=== PATIENT | male | born 1960 | race Caucasian/White ===

== ENCOUNTER 2016-04-20 11:12 | Inpatient (IN) | payer OTHER ==
[2016-04-20 16:39] VITALS: BMI 23.9
--- NOTE | 2016-04-20 16:43 | HP ---
CIWA Score - CIWA Score Nausea/Vomitin-Int. Nausea w/Dry Heave Muscle Tremors: 3 Anxiety: 4-Mod. Anxious/Guarded Agitation: 2 Paroxysmal Sweats: 2 Orientation: 1-Uncertain about Date Tacttile Disturbances: 0-None Auditory Disturbances: 2-Mild Harshness/Frighten Visual Disturbances: 0-None Headache: 2-Mild CIWA-Ar Total Score: 20 Admission ROS S - HPI Chief Complaint: "My and it has been downhill ever since." Pt. is here to detox from Alcohol. Allergies/Adverse Reactions: Allergies Allergy/AdvReac Type Severity Reaction Status Date / Time Penicillins Allergy Hives and Verified 04/20/16 15:18 rash History of Present Illness: Pt. is a 55 YO male here to detox from Alcohol. Pt. has had several previous Detox admissions at [facility] in the past. Exam Limitations: No Limitations - Ebola screening Have you traveled outside of the country in the last 21 days: No Have you had contact with anyone from an Ebola affected area: No Have you been sick,other than usual withdrawal symptoms: No Do you have a fever: No - Review of Systems Constitutional: Diaphoresis, Loss of Appetite, Malaise, Night Sweats, Changes in sleep, Unintentional Wgt. Loss (Lost approx. 10 lbs over last 3 weeks.) EENT: reports: Other (Red Eyes - pt. reports that his eyes feel dry. Pt. denies any signs of infection (itching, tearing, unusual discharge).) Respiratory: reports: Shortness of Breath Cardiac: reports: No Symptoms Reported GI: reports: Nausea, Poor Appetite, Abdominal cramping : reports: No Symptoms Reported Musculoskeletal: reports: No Symptoms Reported Integumentary: reports: No Symptoms Reported Neuro: reports: Tremors Endocrine: reports: No Symptoms Reported Hematology: reports: No Symptoms Reported Psychiatric: reports: Judgement Intact, Mood/Affect Appropiate, Orientated x3, Agitated, Anxious, Depressed (On meds. Ran out of Lexapro approx. 1 week ago - has not taken it since then.) Other Systems: Reviewed and Negative Patient History - Patient Medical History Hx Anemia: No Hx Asthma: No Hx Chronic Obstructive Pulmonary Disease (COPD): Yes (On meds.) Hx Cancer: No Hx Cardiac Disorders: No Hx Congestive Heart Failure: No Hx Hypertension: No Hx Hypercholesterolemia: Yes (NO MEDS) Hx Pacemaker: No HX Cerebrovascular Accident: No Hx Seizures: No Hx Dementia: No Hx Diabetes: No Hx Gastrointestinal Disorders: No Hx Liver Disease: No Hx Genitourinary Disorders: No Hx Sexually Transmitted Disorders: No Hx Renal Disease (ESRD): Yes (Reports that he has Stage II Renal Disease; No treatment.) Hx Thyroid Disease: No Hx Human Immunodeficiency Virus (HIV): No (NEGATIVE HX, 04/2015) Hx Hepatitis C: No (Last tested approx. 1 year ago: NEGATIVE.) Hx Depression: Yes (Stopped Lexapro approx. 1 week ago, ran out of med.) Hx Suicide Attempt: No (PATIENT DENIES CURRENT SI / HI.) Hx Bipolar Disorder: No Hx Schizophrenia: No - Patient Surgical History Past Surgical History: Yes Hx Neurologic Surgery: No Hx Cataract Extraction: No Hx Cardiac Surgery: No Hx Lung Surgery: No Hx Breast Surgery: No Hx Breast Biopsy: No Hx Abdominal Surgery: No Hx Appendectomy: No Hx Cholecystectomy: No Hx Genitourinary Surgery: No Hx Section: No Hx Orthopedic Surgery: Yes (1988: LEFT KNEE RECONSTRUCTIVE SURGERY.) Anesthesia Reaction: No - PPD History Previous Implant?: Yes Documented Results: Negative w/proof Implanted On Prior R Admission?: Yes Date: 01/14/16 Results: 0 mm PPD to be Administered?: No - Reproductive History Patient is a Female of Child Bearing Age (11 -55 yrs old): No (PATIENT IS MALE.) - Smoking Cessation Smoking history: Current every day smoker Have you smoked in the past 12 months: Yes Aproximately how many cigarettes per day: 7 Cigars Per Day: 0 Hx Chewing Tobacco Use: No Initiated information on smoking cessation: Yes 'Breaking Loose' booklet given: 04/20/16 (GIVEN ON UNIT.) - Substance & Tx. History Hx Alcohol Use: Yes Hx Substance Use: Yes Substance Use Type: Alcohol Hx Substance Use Treatment: Yes (Previous Detox Admissions.) - Substances Abused Alcohol-beer/wine Route: Oral Frequency: Daily Amount used: 2 (40 oz.); 1 pt. Wine / Champagne Age of first use: 14 Date of Last Use: 04/20/16 Family Disease History - Family Disease History Family Disease History: Other: Father (ALCOHOLIC ), Mother (MVA ) Admission Physical Exam BHS - Vital Signs Vital Signs: Vital Signs - 24 hr 04/20/16 15:28 Temperature 96.8 F L Pulse Rate 88 Respiratory 18 Rate Blood Pressure 93/57 - Physical General Appearance: Yes: Nourished, Appropriately Dressed, Moderate Distress, Tremorous, Irritable, Anxious HEENTM: Yes: Hearing grossly Normal, Normocephalic, Normal Voice, NABIL, Pharynx Normal, Other (Redness notes in Bilateral Eyes - pt. reports that eyes feel dry. Pt. denies any signs of infection (itching, tearing, unusual discharge).) Respiratory: Yes: Chest Non-Tender, Lungs Clear, No Respiratory Distress Neck: Yes: No masses,lesions,Nodules, Supple, Trachea in good position Breast: Yes: Breast Exam Deferred Cardiology: Yes: Regular Rhythm, Regular Rate, S1, S2 Abdominal: Yes: Normal Bowel Sounds, Non Tender, Flat, Soft Genitourinary: Yes: Within Normal Limits Back: Yes: Normal Inspection Musculoskeletal: Yes: Gait Steady, Joint Stiffness Extremities: Yes: Non-Tender, Tremors Neurological: Yes: Fully Oriented, Alert, Normal Mood/Affect, Normal Response Integumentary: Yes: Normal Color, Warm Lymphatic: Yes: Within Normal Limits - Diagnostic (1) Alcohol dependence with uncomplicated withdrawal Current Visit: Yes Status: Acute (2) COPD (chronic obstructive pulmonary disease) Current Visit: Yes Status: Chronic Qualifiers: COPD type: emphysema Emphysema type: other Qualified Code(s): J43.8 - Other emphysema (3) Hypercholesteremia Current Visit: Yes Status: Chronic Comment: NO MEDS. (4) Nicotine dependence Current Visit: Yes Status: Chronic Qualifiers: Nicotine product type: cigarettes Substance use status: uncomplicated Qualified Code(s): F17.210 - Nicotine dependence, cigarettes, uncomplicated (5) Insomnia Current Visit: Yes Status: Acute Qualifiers: Insomnia type: alcohol-induced Qualified Code(s): F10.982 - Alcohol use, unspecified with alcohol-induced sleep disorder Cleared for Admission [facility] - Detox or Rehab [facility] Level of Care: Medically Managed (PATIENT ADVISED TO FOLLOW-UP WITH [facility] / REHAB MEDICAL PROVIDER AFTER DISCHARGE FROM DETOX FOR GENERAL MEDICAL ASSESSMENT.) Detox Regimen/Protocol: Librium S Breath Alcohol Content Breath Alcohol Content: 0.178 Urine Drug Screen - Results Drug Screen Negative: Yes
[2016-04-20] MEDS ORDERED: IBUPROFEN 400 MG TABLET (FP) PO PRN (17:36)
[2016-04-20] MEDS ORDERED: MAG HYDROX/AL HYDROX/SIMETH 30 ML UNIT-DOSE CUP PO PRN (17:36)
[2016-04-20] MEDS ORDERED: guaiFENesin/D-METHORPHAN HB 10 ML UNIT-DOSE CUPS PO PRN (17:36)
[2016-04-20] MEDS ORDERED: MAGNESIUM CITRATE 300 ML BOTTLE PO PRN (17:36)
[2016-04-20] MEDS ORDERED: LOPERAMIDE HCL 2 MG CAPSULE PO PRN (17:36)
[2016-04-20] MEDS ORDERED: P-EPHED 60MG/TRIPROLIDI 2.5MG TABLET PO PRN (17:36)
[2016-04-20] MEDS ORDERED: MAGNESIUM HYDROX 2400MG/30ML ORAL SUSPENSION 30 ML CUP PO PRN (17:36)
[2016-04-20] MEDS ORDERED: chlordiazePOXIDE HCL 25 MG CAPSULE PO PRN (17:36)
[2016-04-20] MEDS ORDERED: MENTHOL/PHENOL 1 EACH UD MM PRN (17:36)
[2016-04-20] MEDS ORDERED: NICOTINE POLACRILEX 2 MG GUM BC PRN (17:36)
[2016-04-20] MEDS ORDERED: ACETAMINOPHEN 325 MG TABLET (FP) PO PRN (17:36)
[2016-04-20] MEDS ORDERED: chlordiazePOXIDE HCL 25 MG CAPSULE PO ONE (18:00)
[2016-04-20] MEDS: chlordiazePOXIDE HCL 25 MG CAPSULE PO SCH (22:09)
[2016-04-20] MEDS: diphenhydrAMINE HCL 50 MG CAPSULE PO PRN (22:09)
[2016-04-20] MEDS: THIAMINE HCL 100 MG TABLET (FP) PO SCH (22:09)
[2016-04-20] MEDS: NICOTINE 14 MG/24 HOURS TOPICAL PATCH TD SCH (22:10)
[2016-04-20] MEDS: BUDESONIDE/FORMETEROL FUMARATE 80/4.5 mcg INHALER IH SCH (22:54)
[2016-04-20 23:34] LABS: URINE APPEARANCE CLEAR; URINE BILIRUBIN NEGATIVE (NEGATIVE); URINE BLOOD NEGATIVE (NEGATIVE); URINE COLOR YELLOW; URINE GLUCOSE (UA) NEGATIVE (NEGATIVE); URINE KETONE NEGATIVE (NEGATIVE); URINE LEUK ESTERASE NEGATIVE (NEGATIVE); URINE NITRITE NEGATIVE (NEGATIVE); URINE PROTEIN NEGATIVE (NEGATIVE); URINE UROBILINOGEN NEGATIVE E.U./dl (0.2-1.0)
[2016-04-21] MEDS: chlordiazePOXIDE HCL 25 MG CAPSULE PO SCH ×4 (05:58→22:20)
[2016-04-21] MEDS ORDERED: ALBUTEROL SO4 0.083% IH SOL 2.5 MG/3 ML VIAL.NEB. NEB PRN (06:07)
[2016-04-21 10:11] LABS: MCH 33.2 pg (25.7-33.7); MEAN CELL VOLUME 100.7 fl (80-96); MEAN PLT VOLUME 8.9 fl (7.5-11.1); PLATELET COUNT 146 K/MM3 (134-434); RDW 15.7 % (11.9-15.9); WHITE BLOOD COUNT 9.1 K/mm3 (4.0-10.0)
[2016-04-21 10:38] LABS: ALBUMIN 3.9 g/dl (3.4-5.0); ALK PHOS 124 U/L (45-117); ANION GAP 11 (8-16); BILIRUBIN,TOTAL 0.4 mg/dL (0.2-1.0); CALCIUM 8.6 mg/dL (8.5-10.1); CO2 22 mmol/L (21-32); GLUCOSE,RANDOM 126 mg/dL (74-106); SGOT/AST 110 U/L (15-37); SGPT/ALT 97 U/L (12-78); TOT PROT 7.4 g/dl (6.4-8.2)
[2016-04-21] MEDS: NICOTINE 14 MG/24 HOURS TOPICAL PATCH TD SCH (10:54)
[2016-04-21] MEDS: PRENATAL VITAMINS W/ FOLIC ACID TABLET (FP) PO SCH (10:54)
[2016-04-21] MEDS: BUDESONIDE/FORMETEROL FUMARATE 80/4.5 mcg INHALER IH SCH ×2 (10:54→22:19)
[2016-04-21] MEDS: TETRAHYDROZOLINE HCL 1 DROP DROPS OU PRN ×2 (10:55→22:19)
--- NOTE | 2016-04-21 12:39 | PN ---
S CIWA - CIWA Score Nausea/Vomitin Muscle Tremors: 3 Anxiety: 3 Agitation: 3 Paroxysmal Sweats: 3 Orientation: 0-Oriented Tacttile Disturbances: 2-Mild Itch/Numbness/Burn Auditory Disturbances: 0-None Visual Disturbances: 0-None Headache: 2-Mild CIWA-Ar Total Score: 18 S Progress Note (SOAP) Subjective: Irritability, shakes, sweats, nausea and generalized pain Objective: 04/21/16 12:38 NAD Vital Signs - 8 hr 04/21/16 04/21/16 06:00 11:28 Temperature 98.1 F 97.3 F L Pulse Rate 83 96 H Respiratory 18 18 Rate Blood Pressure 145/76 131/89 Laboratory Last Values WBC 9.1 K/mm3 (4.0-10.0) 04/21/16 06:20 RBC 4.33 M/mm3 (4.00-5.60) 04/21/16 06:20 Hgb 14.4 GM/dL (11.7-16.9) 04/21/16 06:20 Hct 43.6 % (35.4-49) 04/21/16 06:20 MCV 100.7 fl (80-96) H 04/21/16 06:20 MCHC 33.0 g/dl (32.0-35.9) 04/21/16 06:20 RDW 15.7 % (11.9-15.9) 04/21/16 06:20 Plt Count 146 K/MM3 (134-434) D 04/21/16 06:20 MPV 8.9 fl (7.5-11.1) D 04/21/16 06:20 Sodium 134 mmol/L (136-145) L 04/21/16 06:20 Potassium 4.2 mmol/L (3.5-5.1) 04/21/16 06:20 Chloride 101 mmol/L (98-107) 04/21/16 06:20 Carbon Dioxide 22 mmol/L (21-32) 04/21/16 06:20 Anion Gap 11 (8-16) 04/21/16 06:20 BUN 6 mg/dL (7-18) L 04/21/16 06:20 Creatinine 1.0 mg/dL (0.7-1.3) D 04/21/16 06:20 Creat Clearance w eGFR > 60 (>60) 04/21/16 06:20 Random Glucose 126 mg/dL (74-106) H D 04/21/16 06:20 Calcium 8.6 mg/dL (8.5-10.1) 04/21/16 06:20 Total Bilirubin 0.4 mg/dL (0.2-1.0) D 04/21/16 06:20 AST 110 U/L (15-37) H D 04/21/16 06:20 ALT 97 U/L (12-78) H D 04/21/16 06:20 Alkaline Phosphatase 124 U/L (45-117) H D 04/21/16 06:20 Total Protein 7.4 g/dl (6.4-8.2) 04/21/16 06:20 Albumin 3.9 g/dl (3.4-5.0) 04/21/16 06:20 Urine Color Yellow 04/20/16 20:00 Urine Appearance Clear 04/20/16 20:00 Urine pH 5.0 (5.0-8.0) 04/20/16 20:00 Ur Specific [place] 1.011 (1.001-1.035) 04/20/16 20:00 Urine Protein Negative (NEGATIVE) 04/20/16 20:00 Urine Glucose (UA) Negative (NEGATIVE) 04/20/16 20:00 Urine Ketones Negative (NEGATIVE) 04/20/16 20:00 Urine Blood Negative (NEGATIVE) 04/20/16 20:00 Urine Nitrite Negative (NEGATIVE) 04/20/16 20:00 Urine Bilirubin Negative (NEGATIVE) 04/20/16 20:00 Urine Urobilinogen Negative E.U./dl (0.2-1.0) 04/20/16 20:00 Ur Leukocyte Esterase Negative (NEGATIVE) 04/20/16 20:00 Labs noted Assessment: 04/21/16 12:38 withdrawal sx Plan: continue detox
--- NOTE | 2016-04-21 14:11 | CONSULT ---
[facility] Psychiatric Consult - Data Date of interview: 04/21/16 Admission source: [facility] Identifying data: Readmission to [facility] for this 55 y/o male seeking detox treatment on for alcohol dependence.Patient is ,a father of one,unemployed,domiciled and supported on survivor's benefits. Substance Abuse History: - Smoking Cessation. Smoking history: Current every day smoker. Have you smoked in the past 12 months: Yes. Aproximately how many cigarettes per day: 7. Cigars Per Day: 0. Hx Chewing Tobacco Use: No. Initiated information on smoking cessation: Yes. 'Breaking Loose' booklet given : 04/20/16 (GIVEN ON UNIT.). - Substance & Tx. History. Hx Alcohol Use: Yes. Hx Substance Use: Yes. Substance Use Type: Alcohol. Hx Substance Use Treatment : Yes (Previous Detox Admissions.). - Substances Abused. Alcohol-beer/ wine. Route: Oral. Frequency: Daily. Amount used: 2 (40 oz.); 1 pt. Wine / Champagne. Age of first use: 14. Date of Last Use: 04/20/16. Confirmed by the patient in this interview. Medical History: COPD,hypertension (alcohol-related),Stage-II renal disease, hypercholesterolemia and left knee replacement (1997). Psychiatric History: No history of psychiatric hospitalizations.Mr Metcalf reports that he gets scripts for remeron 15 mg/hs + lexapro 20 mg/daily from his primary care physician.Diagnosed with MDD/Anxiety Disorder.No history of suicide attempts. Physical/Sexual Abuse/Trauma History: No history of sexual abuse.Traumatized by of (cancer). Additional Comment: Drug Screen is negative.Noted. Mental Status Exam - Mental Status Exam Alert and Oriented to: Time, Place, Person Cognitive Function: Good Patient Appearance: Well Groomed Mood: Nervous, Withdrawn, Hopeful Affect: Mood Congruent, Constricted Patient Behavior: Sedated (mild), Fatigued Speech Pattern: Clear Voice Loudness: Normal Thought Process: Goal Oriented Thought Disorder: Not Present Hallucinations: Denies Suicidal Ideation: Denies Homicidal Ideation: Denies Insight/Judgement: Fair Sleep: Fair Appetite: Good Muscle strength/Tone: Normal Gait/Station: Normal Psychiatric Findings - Problem List ([place] 1, 2,3) (1) Alcohol dependence with uncomplicated withdrawal Current Visit: Yes Status: Acute (2) Nicotine dependence Current Visit: Yes Status: Acute Qualifiers: Nicotine product type: cigarettes Substance use status: uncomplicated Qualified Code(s): F17.210 - Nicotine dependence, cigarettes, uncomplicated (3) MDD (major depressive disorder) Current Visit: Yes Status: Chronic (4) Anxiety disorder Current Visit: Yes Status: Chronic (5) Insomnia Current Visit: Yes Status: Chronic Qualifiers: Insomnia type: alcohol-induced Qualified Code(s): F10.982 - Alcohol use, unspecified with alcohol-induced sleep disorder (6) COPD (chronic obstructive pulmonary disease) Current Visit: Yes Status: Chronic Qualifiers: COPD type: emphysema Emphysema type: other Qualified Code(s): J43.8 - Other emphysema (7) Chronic obstructive bronchitis Current Visit: No Status: Chronic (8) Hypercholesteremia Current Visit: Yes Status: Chronic Comment: NO MEDS. - Initial Treatment Plan Initial Treatment Plan: Psychoeducation.Detoxification.Medications : lexapro 20 mg po daily + remeron 15 mg po hs.Side effects/benefits discussed with the patient.Made aware of the risk of occurrence of suicidal ideation,sexual dysfunction (lexapro),sedation/falls (remeron).Patient admits to history of good tolerability to these two drugs.He agrees with this careplan.Observation.
[2016-04-21] MEDS: ESCITALOPRAM OXALATE 20 MG TABLET (FP) PO SCH (14:57)
--- NOTE | 2016-04-21 21:06 | EKG ---
Test Reason : Blood Pressure : / mmHG Vent. Rate : 079 BPM Atrial Rate : 079 BPM P-R Int : 186 ms QRS Dur : 086 ms QT Int : 368 ms P-R-T Axes : 051 067 044 degrees QTc Int : 421 ms NORMAL SINUS RHYTHM NORMAL ECG NO PREVIOUS ECGS AVAILABLE Confirmed by BISMARK MEDRANO MD ([id number]) on 04/21/2016 9:05:31 PM Referred By: Confirmed By:BISMARK MEDRANO MD
[2016-04-21] MEDS: MIRTAZAPINE 15 MG TABLET (FP) PO SCH (22:19)
[2016-04-21] MEDS: diphenhydrAMINE HCL 50 MG CAPSULE PO PRN (22:19)
[2016-04-21] MEDS: THIAMINE HCL 100 MG TABLET (FP) PO SCH (22:19)
[2016-04-22] MEDS: chlordiazePOXIDE HCL 25 MG CAPSULE PO SCH ×3 (05:26→17:14)
[2016-04-22] MEDS: ALBUTEROL SO4 6.7 GM HFA INHALER IH PRN (05:29)
[2016-04-22] MEDS: ESCITALOPRAM OXALATE 20 MG TABLET (FP) PO SCH (10:19)
[2016-04-22] MEDS: NICOTINE 14 MG/24 HOURS TOPICAL PATCH TD SCH (10:19)
[2016-04-22] MEDS: PRENATAL VITAMINS W/ FOLIC ACID TABLET (FP) PO SCH (10:19)
[2016-04-22] MEDS: BUDESONIDE/FORMETEROL FUMARATE 80/4.5 mcg INHALER IH SCH ×2 (10:19→22:19)
[2016-04-22] MEDS: TETRAHYDROZOLINE HCL 1 DROP DROPS OU PRN ×3 (10:20→22:19)
--- NOTE | 2016-04-22 12:06 | PN ---
S CIWA - CIWA Score Nausea/Vomitin Muscle Tremors: 3 Anxiety: 4-Mod. Anxious/Guarded Agitation: 4-Moderately Restless Paroxysmal Sweats: No Perspiration Orientation: 0-Oriented Tacttile Disturbances: 1-Very Mild Itch/Numbness Auditory Disturbances: 0-None Visual Disturbances: 0-None Headache: 3-Moderate CIWA-Ar Total Score: 18 BHS Progress Note (SOAP) Subjective: Restlessness, Irritable, Interrupted Sleep, Chills, Generalized Body Aches Objective: Vital Signs Temperature 98.1 F 04/22/16 10:00 Pulse Rate 85 04/22/16 10:00 Respiratory Rate 18 04/22/16 10:00 Blood Pressure 131/83 04/22/16 10:00 O2 Sat by Pulse Oximetry (%) Laboratory Last Values WBC 9.1 K/mm3 (4.0-10.0) 04/21/16 06:20 RBC 4.33 M/mm3 (4.00-5.60) 04/21/16 06:20 Hgb 14.4 GM/dL (11.7-16.9) 04/21/16 06:20 Hct 43.6 % (35.4-49) 04/21/16 06:20 MCV 100.7 fl (80-96) H 04/21/16 06:20 MCHC 33.0 g/dl (32.0-35.9) 04/21/16 06:20 RDW 15.7 % (11.9-15.9) 04/21/16 06:20 Plt Count 146 K/MM3 (134-434) D 04/21/16 06:20 MPV 8.9 fl (7.5-11.1) D 04/21/16 06:20 Sodium 134 mmol/L (136-145) L 04/21/16 06:20 Potassium 4.2 mmol/L (3.5-5.1) 04/21/16 06:20 Chloride 101 mmol/L (98-107) 04/21/16 06:20 Carbon Dioxide 22 mmol/L (21-32) 04/21/16 06:20 Anion Gap 11 (8-16) 04/21/16 06:20 BUN 6 mg/dL (7-18) L 04/21/16 06:20 Creatinine 1.0 mg/dL (0.7-1.3) D 04/21/16 06:20 Creat Clearance w eGFR > 60 (>60) 04/21/16 06:20 Random Glucose 126 mg/dL (74-106) H D 04/21/16 06:20 Calcium 8.6 mg/dL (8.5-10.1) 04/21/16 06:20 Total Bilirubin 0.4 mg/dL (0.2-1.0) D 04/21/16 06:20 AST 110 U/L (15-37) H D 04/21/16 06:20 ALT 97 U/L (12-78) H D 04/21/16 06:20 Alkaline Phosphatase 124 U/L (45-117) H D 04/21/16 06:20 Total Protein 7.4 g/dl (6.4-8.2) 04/21/16 06:20 Albumin 3.9 g/dl (3.4-5.0) 04/21/16 06:20 Urine Color Yellow 04/20/16 20:00 Urine Appearance Clear 04/20/16 20:00 Urine pH 5.0 (5.0-8.0) 04/20/16 20:00 Ur Specific [place] 1.011 (1.001-1.035) 04/20/16 20:00 Urine Protein Negative (NEGATIVE) 04/20/16 20:00 Urine Glucose (UA) Negative (NEGATIVE) 04/20/16 20:00 Urine Ketones Negative (NEGATIVE) 04/20/16 20:00 Urine Blood Negative (NEGATIVE) 04/20/16 20:00 Urine Nitrite Negative (NEGATIVE) 04/20/16 20:00 Urine Bilirubin Negative (NEGATIVE) 04/20/16 20:00 Urine Urobilinogen Negative E.U./dl (0.2-1.0) 04/20/16 20:00 Ur Leukocyte Esterase Negative (NEGATIVE) 04/20/16 20:00 RPR Titer Nonreactive (NONREACTIVE) 04/21/16 06:20 Labs Noted Assessment: Withdrawal Symptoms Plan: Continue Detox
[2016-04-22] MEDS: THIAMINE HCL 100 MG TABLET (FP) PO SCH (22:19)
[2016-04-22] MEDS: MIRTAZAPINE 15 MG TABLET (FP) PO SCH (22:19)
[2016-04-22] MEDS: chlordiazePOXIDE 5 MG CAPSULE PO SCH (22:19)
[2016-04-22] MEDS: diphenhydrAMINE HCL 50 MG CAPSULE PO PRN (22:19)
[2016-04-23] MEDS: diphenhydrAMINE HCL 50 MG CAPSULE PO PRN ×2 (00:35→22:04)
[2016-04-23] MEDS: hydrOXYzine PAMOATE 50 MG CAPSULE (FP) PO PRN (02:42)
[2016-04-23] MEDS: chlordiazePOXIDE 5 MG CAPSULE PO SCH ×3 (06:10→17:25)
[2016-04-23] MEDS: BUDESONIDE/FORMETEROL FUMARATE 80/4.5 mcg INHALER IH SCH ×2 (10:16→22:04)
[2016-04-23] MEDS: ESCITALOPRAM OXALATE 20 MG TABLET (FP) PO SCH (10:17)
[2016-04-23] MEDS: PRENATAL VITAMINS W/ FOLIC ACID TABLET (FP) PO SCH (10:17)
[2016-04-23] MEDS: NICOTINE 14 MG/24 HOURS TOPICAL PATCH TD SCH (10:19)
--- NOTE | 2016-04-23 10:46 | PN ---
BHS Progress Note (SOAP) Subjective: sweats agitation body aches Objective: 04/23/16 10:44 Vital Signs Temperature 97.9 F 04/23/16 10:22 Pulse Rate 76 04/23/16 10:22 Respiratory Rate 18 04/23/16 10:22 Blood Pressure 147/71 04/23/16 10:22 O2 Sat by Pulse Oximetry (%) Laboratory Tests 04/20/16 04/21/16 04/21/16 20:00 06:20 06:20 WBC 9.1 RBC 4.33 Hgb 14.4 Hct 43.6 MCV 100.7 H MCHC 33.0 RDW 15.7 Plt Count 146 D MPV 8.9 D Sodium 134 L Potassium 4.2 Chloride 101 Carbon Dioxide 22 Anion Gap 11 BUN 6 L Creatinine 1.0 D Creat Clearance w eGFR > 60 Random Glucose 126 H D Calcium 8.6 Total Bilirubin 0.4 D AST 110 H D ALT 97 H D Alkaline Phosphatase 124 H D Total Protein 7.4 Albumin 3.9 Urine Color Yellow Urine Appearance Clear Urine pH 5.0 Ur Specific [place] 1.011 Urine Protein Negative Urine Glucose (UA) Negative Urine Ketones Negative Urine Blood Negative Urine Nitrite Negative Urine Bilirubin Negative Urine Urobilinogen Negative Ur Leukocyte Esterase Negative RPR Titer 04/21/16 06:20 WBC RBC Hgb Hct MCV MCHC RDW Plt Count MPV Sodium Potassium Chloride Carbon Dioxide Anion Gap BUN Creatinine Creat Clearance w eGFR Random Glucose Calcium Total Bilirubin AST ALT Alkaline Phosphatase Total Protein Albumin Urine Color Urine Appearance Urine pH Ur Specific [place] Urine Protein Urine Glucose (UA) Urine Ketones Urine Blood Urine Nitrite Urine Bilirubin Urine Urobilinogen Ur Leukocyte Esterase RPR Titer Nonreactive elevated liver enzymes; repeat labs d/c tylenol increase fluids awake/alert ambulating no acute distress Assessment: 04/23/16 10:45 withdrawal sx Plan: continue detox increase fluids f/u pending labs d/c in am
[2016-04-23 14:22] LABS: SGOT/AST 34 U/L (15-37); SGPT/ALT 48 U/L (12-78)
[2016-04-23 17:01] VITALS: TEMP 98.1
[2016-04-23] MEDS: ALBUTEROL SO4 6.7 GM HFA INHALER IH PRN (22:04)
[2016-04-23] MEDS: TETRAHYDROZOLINE HCL 1 DROP DROPS OU PRN (22:04)
[2016-04-23] MEDS: MIRTAZAPINE 15 MG TABLET (FP) PO SCH (22:05)
[2016-04-23] MEDS: chlordiazePOXIDE HCL 10 MG CAPSULE PO SCH (22:05)
[2016-04-23] MEDS: THIAMINE HCL 100 MG TABLET (FP) PO SCH (22:05)
[2016-04-24] MEDS: hydrOXYzine PAMOATE 50 MG CAPSULE (FP) PO PRN (02:31)
[2016-04-24] MEDS: chlordiazePOXIDE HCL 10 MG CAPSULE PO SCH (05:26)
[2016-04-24 06:32] VITALS: BP 114/75; PULSE 66
--- NOTE | 2016-04-24 08:44 | DS ---
[facility] Detox Discharge Summary Admission Date: 04/20/16 Discharge Date: 04/24/16 - History Present History: Alcohol Dependence, Cannabis Dependence - Physical Exam Results Vital Signs: Vital Signs Temperature 98.1 F 04/24/16 06:32 Pulse Rate 66 04/24/16 06:32 Respiratory Rate 16 04/24/16 06:32 Blood Pressure 114/75 04/24/16 06:32 O2 Sat by Pulse Oximetry (%) - Treatment Hospital Course: Detox Protocol Followed, Detoxed Safely, Responded well, Discharged Condition Good - Medication Discharge Medications: Ambulatory Orders Escitalopram Oxalate [Lexapro -] 40 mg PO DAILY 08/19/15 Albuterol Sulfate Inhaler - [Ventolin HFA Inhaler -] 2 inh IH Q4H PRN 04/20/16 Budesonide/Formeterol Fumarate [SYMBICORT 80/4.5mcg -] 1 inh PO BID 04/20/16 Mirtazapine [Remeron -] 15 mg PO HS 04/20/16 Escitalopram Oxalate [Lexapro -] 20 mg PO DAILY #30 tablet 04/21/16 Mirtazapine [Remeron -] 15 mg PO DAILY #30 tablet 04/21/16 - Diagnosis (1) Alcohol dependence with uncomplicated withdrawal Current Visit: Yes Status: Chronic (2) Nicotine dependence Current Visit: Yes Status: Chronic Qualifiers: Nicotine product type: cigarettes Substance use status: uncomplicated Qualified Code(s): F17.210 - Nicotine dependence, cigarettes, uncomplicated (3) Anxiety disorder Current Visit: Yes Status: Chronic Qualifiers: Anxiety disorder type: unspecified anxiety disorder Qualified Code(s ): F41.9 - Anxiety disorder, unspecified (4) COPD (chronic obstructive pulmonary disease) Current Visit: Yes Status: Chronic Qualifiers: COPD type: emphysema Emphysema type: other Qualified Code(s): J43.8 - Other emphysema (5) Hypercholesteremia Current Visit: Yes Status: Chronic (6) Cannabis dependence Current Visit: Yes Status: Chronic - AMA Did Patient Leave Against Medical Advice: No
== END 2016-04-24 09:28 | disposition home or self-care (01) | DRG 775 ==
LOC: YASAS 11:12 → Y6N 15:45
PROVIDERS: ADMIT Internal Medicine; ATTEND Internal Medicine
PROC: HZ2ZZZZ Detoxification Services for Substance Abuse Treatment (ICD-10-PCS; principal; 2016-04-20)
DX: F10.230 Alcohol dependence with withdrawal, uncomplicated (principal); F10.282 Alcohol dependence with alcohol-induced sleep disorder; F12.20 Cannabis dependence, uncomplicated; F17.210 Nicotine dependence, cigarettes, uncomplicated; F41.9 Anxiety disorder, unspecified; F33.9 Major depressive disorder, recurrent, unspecified; J43.8 Other emphysema; E78.00 Pure hypercholesterolemia, unspecified; R94.5 Abnormal results of liver function studies; N18.2 Chronic kidney disease, stage 2 (mild); Z96.652 Presence of left artificial knee joint
CPT/HCPCS: 36415; 80053; 81003; 84450; 84460; 85027; 86593; 93005; 93010

== ENCOUNTER 2016-12-05 09:29 | Inpatient (IN) | payer OTHER ==
[2016-12-05 10:40] VITALS: BMI 24.7
--- NOTE | 2016-12-05 13:47 | HP ---
CIWA Score - CIWA Score Nausea/Vomitin-No Nausea/No Vomiting Muscle Tremors: 4-Moderate,w/Arms Extend Anxiety: 3 Agitation: 4-Moderately Restless Paroxysmal Sweats: 3 Orientation: 0-Oriented Tacttile Disturbances: 0-None Auditory Disturbances: 0-None Visual Disturbances: 0-None Headache: 1-Very Mild CIWA-Ar Total Score: 15 Admission ROS BHS - HPI Chief Complaint: I am here to detox off this alcohol. Allergies/Adverse Reactions: Allergies Allergy/AdvReac Type Severity Reaction Status Date / Time Penicillins Allergy Hives and Verified 12/05/16 11:25 rash History of Present Illness: pt is a 56yr old male with a history of alcohol dependence seeking detox for treatment. Exam Limitations: No Limitations - Ebola screening Have you traveled outside of the country in the last 21 days: No Have you had contact with anyone from an Ebola affected area: No Have you been sick,other than usual withdrawal symptoms: No Do you have a fever: No - Review of Systems Constitutional: Chills, Diaphoresis, Night Sweats, Changes in sleep EENT: reports: No Symptoms Reported Respiratory: reports: No Symptoms reported Cardiac: reports: No Symptoms Reported GI: reports: Poor Appetite, Poor Fluid Intake : reports: No Symptoms Reported Musculoskeletal: reports: No Symptoms Reported Integumentary: reports: Flushing, Sweating Neuro: reports: Tingling, Tremors Endocrine: reports: Excessive Sweating, Flushing, Intolerance to Cold, Intolerance to Heat Hematology: reports: No Symptoms Reported Psychiatric: reports: No Sypmtoms Reported, Judgement Intact, Mood/Affect Appropiate, Orientated x3, Agitated, Anxious Other Systems: Reviewed and Negative Patient History - Patient Medical History Hx Anemia: No Hx Asthma: No Hx Chronic Obstructive Pulmonary Disease (COPD): Yes Hx Cancer: No Hx Cardiac Disorders: No Hx Congestive Heart Failure: No Hx Hypertension: No Hx Hypercholesterolemia: Yes (NO MEDS) Hx Pacemaker: No HX Cerebrovascular Accident: No Hx Seizures: No Hx Dementia: No Hx Diabetes: No Hx Gastrointestinal Disorders: No Hx Liver Disease: No Hx Genitourinary Disorders: No Hx Sexually Transmitted Disorders: No Hx Renal Disease (ESRD): No Hx Thyroid Disease: No Hx Human Immunodeficiency Virus (HIV): No (NEGATIVE HX, 04/2015) Hx Hepatitis C: No (Last tested approx. 1 year ago: NEGATIVE.) Hx Depression: Yes Hx Suicide Attempt: No Hx Bipolar Disorder: No Hx Schizophrenia: No - Patient Surgical History Past Surgical History: Yes Hx Neurologic Surgery: No Hx Cataract Extraction: No Hx Cardiac Surgery: No Hx Lung Surgery: No Hx Breast Surgery: No Hx Breast Biopsy: No Hx Abdominal Surgery: No Hx Appendectomy: No Hx Cholecystectomy: No Hx Genitourinary Surgery: No Hx Section: No Hx Orthopedic Surgery: Yes (1989: LEFT KNEE RECONSTRUCTIVE SURGERY.) Anesthesia Reaction: No - PPD History Previous Implant?: Yes Documented Results: Positive w/o proof Implanted On Prior R Admission?: Yes Date: 01/14/16 Results: 0 mm PPD to be Administered?: No - Reproductive History Patient is a Female of Child Bearing Age (11 -55 yrs old): No - Smoking Cessation Smoking history: Current every day smoker Have you smoked in the past 12 months: Yes Aproximately how many cigarettes per day: 7 Cigars Per Day: 0 Hx Chewing Tobacco Use: No Initiated information on smoking cessation: Yes 'Breaking Loose' booklet given: 12/05/16 - Substance & Tx. History Hx Alcohol Use: Yes Hx Substance Use: No Substance Use Type: Alcohol Hx Substance Use Treatment: Yes (last detox 03/2016 in [facility]) - Substances Abused Alcohol Route: Oral Frequency: Daily Amount used: 1 gallon of wine Age of first use: 17 Date of Last Use: 12/05/16 Family Disease History - Family Disease History Family Disease History: Other: Father (ALCOHOLIC ), Mother (MVA ), Brother (ONLY CHILD) Admission Physical Exam S - Vital Signs Vital Signs: Vital Signs - 24 hr 12/05/16 10:37 Temperature 97 F L Pulse Rate 84 Respiratory 20 Rate Blood Pressure 118/82 - Physical General Appearance: Yes: Appropriately Dressed, Moderate Distress, Tremorous, Irritable, Sweating, Anxious HEENTM: Yes: Normal Voice Respiratory: Yes: Lungs Clear, Normal Breath Sounds, No Respiratory Distress Neck: Yes: Within Normal Limits Breast: Yes: Within Normal Limits Cardiology: Yes: Regular Rhythm, Regular Rate, S1, S2 Abdominal: Yes: Normal Bowel Sounds, Non Tender, Soft Genitourinary: Yes: Within Normal Limits Back: Yes: Normal Inspection Musculoskeletal: Yes: full range of Motion Extremities: Yes: Normal Capillary Refill, Normal Inspection, Non-Tender, Tremors Neurological: Yes: Fully Oriented, Alert, Normal Response Integumentary: Yes: Normal Color, Diaphoresis Lymphatic: Yes: Within Normal Limits - Diagnostic (1) Alcohol dependence with uncomplicated withdrawal Current Visit: Yes Status: Chronic (2) COPD (chronic obstructive pulmonary disease) Current Visit: Yes Status: Chronic Qualifiers: COPD type: chronic bronchitis Chronic bronchitis type: unspecified Qualified Code(s): J42 - Unspecified chronic bronchitis; J42 - Unspecified chronic bronchitis; J42 - Unspecified chronic bronchitis; J42 - Unspecified chronic bronchitis (3) Hypercholesteremia Current Visit: Yes Status: Chronic Comment: NO MEDS. (4) Nicotine dependence Current Visit: No Status: Chronic Qualifiers: Nicotine product type: cigarettes Substance use status: uncomplicated Qualified Code(s): F17.210 - Nicotine dependence, cigarettes, uncomplicated; F17.210 - Nicotine dependence, cigarettes, uncomplicated Cleared for Admission BHS - Detox or Rehab S Level of Care: Medically Managed Detox Regimen/Protocol: Librium S Breath Alcohol Content Breath Alcohol Content: 0.302 Urine Drug Screen - Results Drug Screen Negative: Yes
[2016-12-05] MEDS ORDERED: MAG HYDROX/AL HYDROX/SIMETH 30 ML UNIT-DOSE CUP PO PRN (13:48)
[2016-12-05] MEDS ORDERED: chlordiazePOXIDE HCL 25 MG CAPSULE PO PRN (13:48)
[2016-12-05] MEDS ORDERED: LOPERAMIDE HCL 2 MG CAPSULE PO PRN (13:48)
[2016-12-05] MEDS ORDERED: IBUPROFEN 400 MG TABLET (FP) PO PRN (13:48)
[2016-12-05] MEDS ORDERED: MAGNESIUM CITRATE 300 ML BOTTLE PO PRN (13:48)
[2016-12-05] MEDS ORDERED: MENTHOL/PHENOL 1 EACH UD MM PRN (13:48)
[2016-12-05] MEDS ORDERED: MAGNESIUM HYDROX 2400MG/30ML ORAL SUSPENSION 30 ML CUP PO PRN (13:48)
[2016-12-05] MEDS ORDERED: P-EPHED 60MG/TRIPROLIDI 2.5MG TABLET PO PRN (13:48)
[2016-12-05] MEDS ORDERED: guaiFENesin/D-METHORPHAN HB 10 ML UNIT-DOSE CUPS PO PRN (13:48)
[2016-12-05] MEDS ORDERED: ACETAMINOPHEN 325 MG TABLET (FP) PO PRN (13:48)
[2016-12-05] MEDS ORDERED: ALBUTEROL SO4 18 GM HFA INHALER IH PRN (13:49)
[2016-12-05] MEDS ORDERED: chlordiazePOXIDE HCL 25 MG CAPSULE PO ONE (14:01)
[2016-12-05] MEDS: chlordiazePOXIDE HCL 25 MG CAPSULE PO SCH ×2 (17:38→22:21)
[2016-12-05] MEDS: hydrOXYzine PAMOATE 50 MG CAPSULE (FP) PO PRN (18:59)
[2016-12-05 21:54] LABS: URINE APPEARANCE CLEAR; URINE BILIRUBIN NEGATIVE (NEGATIVE); URINE BLOOD NEGATIVE (NEGATIVE); URINE COLOR COLORLESS; URINE GLUCOSE (UA) NEGATIVE (NEGATIVE); URINE KETONE NEGATIVE (NEGATIVE); URINE NITRITE NEGATIVE (NEGATIVE); URINE PROTEIN NEGATIVE (NEGATIVE); URINE UROBILINOGEN NEGATIVE mg/dL (0.2-1.0)
[2016-12-05] MEDS: THIAMINE HCL 100 MG TABLET (FP) PO SCH (22:21)
[2016-12-05] MEDS: diphenhydrAMINE HCL 50 MG CAPSULE PO PRN (22:22)
[2016-12-05 22:51] LABS: URINE LEUK ESTERASE Negative (NEGATIVE)
[2016-12-06] MEDS: chlordiazePOXIDE HCL 25 MG CAPSULE PO SCH ×4 (05:59→22:17)
[2016-12-06 09:39] LABS: MCH 33.5 pg (25.7-33.7); MCHC 33.3 g/dl (32.0-35.9); MEAN CELL VOLUME 100.5 fl (80-96); MEAN PLT VOLUME 8.8 fl (7.5-11.1); PLATELET COUNT 253 K/MM3 (134-434); RDW 13.9 % (11.9-15.9); WHITE BLOOD COUNT 8.3 K/mm3 (4.0-10.0)
[2016-12-06] MEDS ORDERED: NICOTINE 14 MG/24 HOURS TOPICAL PATCH TD SCH (10:00)
[2016-12-06] MEDS ORDERED: PRENATAL VITAMINS W/ FOLIC ACID TABLET (FP) PO SCH (10:00)
[2016-12-06 10:08] LABS: ALBUMIN 3.7 g/dl (3.4-5.0); ALK PHOS 110 U/L (45-117); ANION GAP 8 (8-16); BILIRUBIN,TOTAL 0.4 mg/dL (0.2-1.0); CALCIUM 8.6 mg/dL (8.5-10.1); CO2 25 mmol/L (21-32); CREATININE 0.8 mg/dL (0.7-1.3); GLUCOSE,RANDOM 121 mg/dL (74-106); SGOT/AST 37 U/L (15-37); SGPT/ALT 37 U/L (12-78); TOT PROT 7.6 g/dl (6.4-8.2)
--- NOTE | 2016-12-06 10:11 | CONSULT ---
[facility] Psychiatric Consult - Data Date of interview: 12/06/16 Admission source: [facility] Identifying data: Another admission to [facility] for this 56 y/o male seeking detox treatment on for alcohol dependence.Patient is ,a father of one,unemployed,domiciled and supported on survivor's benefits. Substance Abuse History: Patient confirmed an enduring history of alcohol dependence. Smoking Cessation. Smoking history: Current every day smoker. Have you smoked in the past 12 months: Yes. Aproximately how many cigarettes per day: 7. Cigars Per Day: 0. Hx Chewing Tobacco Use: No. Initiated information on smoking cessation: Yes. 'Breaking Loose' booklet given: . - Substance & Tx. History. Hx Alcohol Use: Yes. Hx Substance Use: No. Substance Use Type: Alcohol. Hx Substance Use Treatment: Yes (last detox 2016 in [facility]). - Substances Abused. Alcohol. Route: Oral. Frequency: Daily. Amount used: 1 gallon of wine. Age of first use: 17. Date of Last Use : 12/05/16 Medical History: Medical co-morbidities.COPD,hypertension (alcohol-related), Stage-II renal disease,hypercholesterolemia and left knee replacement (1997). Psychiatric History: No history of psychiatric hospitalizations.Mr Metcalf reports that he gets outpatient psychiatric services at the [facility] in the [place].Prescribed lexapro 20 mg/day.Diagnosed with MDD and Anxiety Disorder.No history of suicide attempts. Physical/Sexual Abuse/Trauma History: No history of sexual abuse.Coping with 's (2011). Additional Comment: Drug Screen is negative. Mental Status Exam - Mental Status Exam Alert and Oriented to: Time, Place, Person Cognitive Function: Good Patient Appearance: Well Groomed Mood: Depressed, Sad, Withdrawn Affect: Constricted Patient Behavior: Fatigued, Appropriate, Cooperative Speech Pattern: Clear Voice Loudness: Normal Thought Process: Intact, Goal Oriented Thought Disorder: Not Present Hallucinations: Denies Suicidal Ideation: Denies Homicidal Ideation: Denies Insight/Judgement: Poor Sleep: Fair Appetite: Poor Muscle strength/Tone: Normal Gait/Station: Normal Psychiatric Findings - Problem List ([place] 1, 2,3) (1) Alcohol dependence with uncomplicated withdrawal Current Visit: Yes Status: Acute (2) Nicotine dependence Current Visit: Yes Status: Acute Qualifiers: Nicotine product type: cigarettes Substance use status: uncomplicated Qualified Code(s): F17.210 - Nicotine dependence, cigarettes, uncomplicated; F17.210 - Nicotine dependence, cigarettes, uncomplicated (3) MDD (major depressive disorder) Current Visit: Yes Status: Chronic (4) COPD (chronic obstructive pulmonary disease) Current Visit: Yes Status: Chronic Qualifiers: COPD type: chronic bronchitis Chronic bronchitis type: unspecified Qualified Code(s): J42 - Unspecified chronic bronchitis; J42 - Unspecified chronic bronchitis; J42 - Unspecified chronic bronchitis; J42 - Unspecified chronic bronchitis (5) Hypercholesteremia Current Visit: Yes Status: Chronic Comment: NO MEDS. (6) Weight loss Current Visit: Yes Status: Acute (7) Insomnia Current Visit: Yes Status: Chronic Qualifiers: Insomnia type: alcohol-induced Qualified Code(s): F10.982 - Alcohol use, unspecified with alcohol-induced sleep disorder; F10.982 - Alcohol use, unspecified with alcohol-induced sleep disorder; F10.982 - Alcohol use, unspecified with alcohol-induced sleep disorder - Initial Treatment Plan Initial Treatment Plan: Psychoeducation and support.Detoxification in progress.Medications : lexapro 20 mg po daily.Side effects/benefits are discussed with the patient.He agrees with this careplan.Observation.
[2016-12-06] MEDS ORDERED: ESCITALOPRAM OXALATE 20 MG TABLET (FP) PO SCH (11:00)
--- NOTE | 2016-12-06 12:05 | EKG ---
Test Reason : Blood Pressure : / mmHG Vent. Rate : 073 BPM Atrial Rate : 073 BPM P-R Int : 182 ms QRS Dur : 082 ms QT Int : 356 ms P-R-T Axes : 033 065 046 degrees QTc Int : 392 ms NORMAL SINUS RHYTHM NORMAL ECG WHEN COMPARED WITH ECG OF 20-APR-2016 18:54, NO SIGNIFICANT CHANGE WAS FOUND Confirmed by TERRENCE MCKNIGHT MD ([id number]) on 12/06/2016 12:05:11 PM Referred By: Shaw Andrade Confirmed By:TERRENCE MCKNIGHT MD
--- NOTE | 2016-12-06 12:38 | PN ---
[facility] CIWA - CIWA Score Nausea/Vomitin-No Nausea/No Vomiting Muscle Tremors: 4-Moderate,w/Arms Extend Anxiety: 3 Agitation: 3 Paroxysmal Sweats: 3 Orientation: 2-Disoriented Date<2 days Tacttile Disturbances: 2-Mild Itch/Numbness/Burn Auditory Disturbances: 2-Mild Harshness/Frighten Visual Disturbances: 0-None Headache: 0-None Present CIWA-Ar Total Score: 19 BHS Progress Note (SOAP) Subjective: Interrupted sleep, Tremors, Sweating, Fatigue. Objective: PT. A & O X 2 (DISORIENTED ABOUT DAY / DATE). NO ACUTE DISTRESS. 12/06/16 12:37 Vital Signs Temperature 97.8 F 12/06/16 09:51 Pulse Rate 100 H 12/06/16 09:51 Respiratory Rate 18 12/06/16 09:51 Blood Pressure 134/97 12/06/16 09:51 O2 Sat by Pulse Oximetry (%) Laboratory Tests 12/05/16 12/06/16 12/06/16 21:30 06:00 06:00 WBC 8.3 RBC 4.52 Hgb 15.1 Hct 45.4 MCV 100.5 H MCH 33.5 MCHC 33.3 RDW 13.9 D Plt Count 253 D MPV 8.8 Sodium 136 Potassium 4.3 Chloride 103 Carbon Dioxide 25 Anion Gap 8 BUN 5 L Creatinine 0.8 Creat Clearance w eGFR > 60 Random Glucose 121 H Calcium 8.6 Total Bilirubin 0.4 AST 37 ALT 37 D Alkaline Phosphatase 110 Total Protein 7.6 Albumin 3.7 Urine Color Colorless Urine Appearance Clear Urine pH 6.0 Ur Specific [place] <= 1.005 Urine Protein Negative Urine Glucose (UA) Negative Urine Ketones Negative Urine Blood Negative Urine Nitrite Negative Urine Bilirubin Negative Urine Urobilinogen Negative Ur Leukocyte Esterase Negative RPR Titer 12/06/16 06:00 WBC RBC Hgb Hct MCV MCH MCHC RDW Plt Count MPV Sodium Potassium Chloride Carbon Dioxide Anion Gap BUN Creatinine Creat Clearance w eGFR Random Glucose Calcium Total Bilirubin AST ALT Alkaline Phosphatase Total Protein Albumin Urine Color Urine Appearance Urine pH Ur Specific [place] Urine Protein Urine Glucose (UA) Urine Ketones Urine Blood Urine Nitrite Urine Bilirubin Urine Urobilinogen Ur Leukocyte Esterase RPR Titer Nonreactive LABS NOTED. Assessment: 12/06/16 12:37 WITHDRAWAL SYMPTOMS. Plan: CONTINUE DETOX.
[2016-12-06] MEDS: hydrOXYzine PAMOATE 50 MG CAPSULE (FP) PO PRN (17:14)
[2016-12-06] MEDS: THIAMINE HCL 100 MG TABLET (FP) PO SCH (22:17)
[2016-12-06] MEDS: diphenhydrAMINE HCL 50 MG CAPSULE PO PRN (22:17)
[2016-12-07] MEDS: chlordiazePOXIDE HCL 25 MG CAPSULE PO SCH (05:55)
[2016-12-07 10:18] VITALS: BP 127/95; PULSE 94; TEMP 96.8
--- NOTE | 2016-12-07 12:18 | DS ---
[facility] Detox Discharge Summary Admission Date: 12/05/16 Discharge Date: 12/07/16 - History Present History: Alcohol Dependence Additional Comments: PT DECLINED TO COMPLETE DETOX DESPITE ALL EFFORTS TO ENCOURAGE TO STAY. ALERT O X 3 BUT STILL WITH SLIGHT TREMORS. NAD. Pertinent Past History: HYPERCHOLESTEROLEMIA COPD - Physical Exam Results Vital Signs: Vital Signs Temperature 96.8 F L 12/07/16 10:17 Pulse Rate 94 H 12/07/16 10:17 Respiratory Rate 18 12/07/16 10:17 Blood Pressure 127/95 12/07/16 10:17 O2 Sat by Pulse Oximetry (%) Pertinent Admission Physical Exam Findings: WITHDRAWAL SX Laboratory Last Values WBC 8.3 K/mm3 (4.0-10.0) 12/06/16 06:00 RBC 4.52 M/mm3 (4.00-5.60) 12/06/16 06:00 Hgb 15.1 GM/dL (11.7-16.9) 12/06/16 06:00 Hct 45.4 % (35.4-49) 12/06/16 06:00 MCV 100.5 fl (80-96) H 12/06/16 06:00 MCH 33.5 pg (25.7-33.7) 12/06/16 06:00 MCHC 33.3 g/dl (32.0-35.9) 12/06/16 06:00 RDW 13.9 % (11.9-15.9) D 12/06/16 06:00 Plt Count 253 K/MM3 (134-434) D 12/06/16 06:00 MPV 8.8 fl (7.5-11.1) 12/06/16 06:00 Sodium 136 mmol/L (136-145) 12/06/16 06:00 Potassium 4.3 mmol/L (3.5-5.1) 12/06/16 06:00 Chloride 103 mmol/L (98-107) 12/06/16 06:00 Carbon Dioxide 25 mmol/L (21-32) 12/06/16 06:00 Anion Gap 8 (8-16) 12/06/16 06:00 BUN 5 mg/dL (7-18) L 12/06/16 06:00 Creatinine 0.8 mg/dL (0.7-1.3) 12/06/16 06:00 Creat Clearance w eGFR > 60 (>60) 12/06/16 06:00 Random Glucose 121 mg/dL (74-106) H 12/06/16 06:00 Calcium 8.6 mg/dL (8.5-10.1) 12/06/16 06:00 Total Bilirubin 0.4 mg/dL (0.2-1.0) 12/06/16 06:00 AST 37 U/L (15-37) 12/06/16 06:00 ALT 37 U/L (12-78) D 12/06/16 06:00 Alkaline Phosphatase 110 U/L (45-117) 12/06/16 06:00 Total Protein 7.6 g/dl (6.4-8.2) 12/06/16 06:00 Albumin 3.7 g/dl (3.4-5.0) 12/06/16 06:00 Urine Color Colorless 12/05/16 21:30 Urine Appearance Clear 12/05/16 21:30 Urine pH 6.0 (5.0-8.0) 12/05/16 21:30 Ur Specific [place] <= 1.005 (1.005-1.025) 12/05/16 21:30 Urine Protein Negative (NEGATIVE) 12/05/16 21:30 Urine Glucose (UA) Negative (NEGATIVE) 12/05/16 21:30 Urine Ketones Negative (NEGATIVE) 12/05/16 21:30 Urine Blood Negative (NEGATIVE) 12/05/16 21:30 Urine Nitrite Negative (NEGATIVE) 12/05/16 21:30 Urine Bilirubin Negative (NEGATIVE) 12/05/16 21:30 Urine Urobilinogen Negative mg/dL (0.2-1.0) 12/05/16 21:30 Ur Leukocyte Esterase Negative (NEGATIVE) 12/05/16 21:30 RPR Titer Nonreactive (NONREACTIVE) 12/06/16 06:00 - Treatment Hospital Course: Discharged Condition Good - Medication Discharge Medications: Ambulatory Orders Escitalopram Oxalate [Lexapro -] 40 mg PO DAILY 08/19/15 Mirtazapine [Remeron -] 15 mg PO HS 04/20/16 Albuterol Sulfate Inhaler - [Ventolin HFA Inhaler -] 2 inh IH Q4H PRN #1 inhaler 04/24/16 Naltrexone Microspheres [Vivitrol] 380 mg IM MONTHLY 12/05/16 Escitalopram Oxalate [Lexapro -] 20 mg PO DAILY #30 tablet 12/06/16 - Diagnosis (1) Alcohol dependence with uncomplicated withdrawal Status: Acute (2) Nicotine dependence Status: Acute Qualifiers: Nicotine product type: cigarettes Substance use status: in withdrawal Qualified Code(s): F17.213 - Nicotine dependence, cigarettes, with withdrawal; F17.213 - Nicotine dependence, cigarettes, with withdrawal (3) Weight loss Status: Acute (4) COPD (chronic obstructive pulmonary disease) Status: Chronic Qualifiers: COPD type: chronic bronchitis Chronic bronchitis type: unspecified Qualified Code(s): J42 - Unspecified chronic bronchitis; J42 - Unspecified chronic bronchitis; J42 - Unspecified chronic bronchitis; J42 - Unspecified chronic bronchitis (5) Hypercholesteremia Status: Chronic - AMA Did Patient Leave Against Medical Advice: Yes (AMA)
[2016-12-07] MEDS ORDERED: chlordiazePOXIDE 5 MG CAPSULE PO SCH (17:00)
[2016-12-08] MEDS ORDERED: chlordiazePOXIDE HCL 10 MG CAPSULE PO SCH (17:00)
== END 2016-12-07 11:08 | disposition left against medical advice (07) | DRG 770 ==
LOC: YASAS 09:29 → Y3N 13:54
PROVIDERS: ADMIT Internal Medicine; ATTEND Internal Medicine
PROC: HZ2ZZZZ Detoxification Services for Substance Abuse Treatment (ICD-10-PCS; principal; 2016-12-05)
DX: F10.230 Alcohol dependence with withdrawal, uncomplicated (principal); F17.210 Nicotine dependence, cigarettes, uncomplicated; F33.9 Major depressive disorder, recurrent, unspecified; E78.00 Pure hypercholesterolemia, unspecified; J45.20 Mild intermittent asthma, uncomplicated; G47.00 Insomnia, unspecified; Z96.652 Presence of left artificial knee joint; Z87.898 Personal history of other specified conditions
CPT/HCPCS: 36415; 80053; 81003; 85027; 86593; 93005; 93010

== ENCOUNTER 2017-01-09 11:50 | Inpatient (IN) | payer OTHER ==
[2017-01-09 15:12] VITALS: BMI 24.2
--- NOTE | 2017-01-09 15:44 | HP ---
CIWA Score - CIWA Score Nausea/Vomitin Muscle Tremors: 3 Anxiety: 3 Agitation: 3 Paroxysmal Sweats: 2 Orientation: 0-Oriented Tacttile Disturbances: 2-Mild Itch/Numbness/Burn Auditory Disturbances: 2-Mild Harshness/Frighten Visual Disturbances: 2-Mild Sensitivity Headache: 2-Mild CIWA-Ar Total Score: 22 Admission ROS BHS - HPI Chief Complaint: i need help to stop drinking alcohol Allergies/Adverse Reactions: Allergies Allergy/AdvReac Type Severity Reaction Status Date / Time Penicillins Allergy Hives and Verified 01/09/17 15:27 rash History of Present Illness: this 56 years old male with alcohol dependence,seeking detox,last detox to 12/07/16 not completed Exam Limitations: No Limitations - Ebola screening Have you traveled outside of the country in the last 21 days: No (N) Have you had contact with anyone from an Ebola affected area: No Have you been sick,other than usual withdrawal symptoms: No Do you have a fever: No - Review of Systems Constitutional: Loss of Appetite, Malaise, Night Sweats, Changes in sleep EENT: reports: Nose Congestion Respiratory: reports: No Symptoms reported Cardiac: reports: No Symptoms Reported GI: reports: Diarrhea, Nausea, Vomiting, Abdominal cramping : reports: No Symptoms Reported Musculoskeletal: reports: Back Pain, Muscle Pain Integumentary: reports: Dryness Neuro: reports: Headache, Tremors Endocrine: reports: No Symptoms Reported Hematology: reports: No Symptoms Reported Psychiatric: reports: No Sypmtoms Reported, Judgement Intact, Mood/Affect Appropiate, Depressed (ptsd) Patient History - Patient Medical History Hx Anemia: No Hx Asthma: No Hx Chronic Obstructive Pulmonary Disease (COPD): Yes (Pt is on MDI.) Hx Cancer: No Hx Cardiac Disorders: No Hx Congestive Heart Failure: No Hx Hypertension: No Hx Hypercholesterolemia: Yes (NO MEDS) Hx Pacemaker: No HX Cerebrovascular Accident: No Hx Seizures: No Hx Dementia: No Hx Diabetes: No Hx Gastrointestinal Disorders: No Hx Liver Disease: No Hx Genitourinary Disorders: No Hx Sexually Transmitted Disorders: No Hx Renal Disease (ESRD): No Hx Thyroid Disease: No Hx Human Immunodeficiency Virus (HIV): No (negative last ) Hx Hepatitis C: No (Last tested approx. 1 year ago: NEGATIVE.) Hx Depression: Yes Hx Suicide Attempt: No Hx Bipolar Disorder: No Hx Schizophrenia: No Other Medical History: no suicidal,no homicidal - Patient Surgical History Past Surgical History: Yes Hx Neurologic Surgery: No Hx Cataract Extraction: No Hx Cardiac Surgery: No Hx Lung Surgery: No Hx Breast Surgery: No Hx Breast Biopsy: No Hx Abdominal Surgery: No Hx Appendectomy: No Hx Cholecystectomy: No Hx Genitourinary Surgery: No Hx Section: No Hx Orthopedic Surgery: Yes (1989: LEFT KNEE RECONSTRUCTIVE SURGERY.) Anesthesia Reaction: No - PPD History Previous Implant?: Yes Documented Results: Negative w/proof Implanted On Prior [facility] Admission?: Yes Date: 12/07/16 Results: 0 MM PPD to be Administered?: No - Smoking Cessation Smoking history: Current every day smoker Have you smoked in the past 12 months: Yes Aproximately how many cigarettes per day: 7 Cigars Per Day: 0 Hx Chewing Tobacco Use: No Initiated information on smoking cessation: Yes 'Breaking Loose' booklet given: 01/09/17 - Substance & Tx. History Hx Alcohol Use: Yes Hx Substance Use: Yes Substance Use Type: Alcohol Hx Substance Use Treatment: Yes (last [facility] 12/05/16 to 12/07/16 not completed) - Substances Abused Alcohol Route: Oral Frequency: Daily Amount used: 2 BOTTLES OF WINE 2 BOTTLES [place] 2 40 OZ BEERS Age of first use: 21 Date of Last Use: 01/09/17 Family Disease History - Family Disease History Family Disease History: Other: Father (ALCOHOLIC ), Mother (MVA ), Brother (ONLY CHILD) Admission Physical Exam BHS - Vital Signs Vital Signs: Vital Signs - 24 hr 01/09/17 15:09 Temperature 96.4 F L Pulse Rate 92 H Respiratory 20 Rate Blood Pressure 114/83 - Physical General Appearance: Yes: Moderate Distress, Tremorous, Irritable, Sweating, Anxious HEENTM: Yes: Normal ENT Inspection, NABIL, Pharynx Normal Respiratory: Yes: Within Normal Limits, Lungs Clear, Normal Breath Sounds Neck: Yes: Within Normal Limits Breast: Yes: Within Normal Limits Cardiology: Yes: Within Normal Limits, Regular Rhythm, Regular Rate, S1, S2 Abdominal: Yes: Within Normal Limits, Normal Bowel Sounds, Non Tender, Flat, Soft Genitourinary: Yes: Within Normal Limits Back: Yes: Muscle Spasm Musculoskeletal: Yes: full range of Motion, Back pain, Muscle Pain Extremities: Yes: Normal Inspection, Normal Range of Motion, Other (s/p left knee reconstruction) 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, Fully Oriented, Alert, Motor Strength 5/5 Integumentary: Yes: Dry Lymphatic: Yes: Within Normal Limits - Diagnostic (1) Alcohol dependence with uncomplicated withdrawal Current Visit: No Status: Acute (2) Nicotine dependence Current Visit: No Status: Acute Qualifiers: Nicotine product type: cigarettes Substance use status: in withdrawal Qualified Code(s): F17.213 - Nicotine dependence, cigarettes, with withdrawal (3) Syncope Current Visit: No Status: Acute (4) Weight loss Current Visit: No Status: Acute (5) COPD (chronic obstructive pulmonary disease) Current Visit: No Status: Chronic Qualifiers: COPD type: chronic bronchitis Chronic bronchitis type: unspecified Qualified Code(s): J42 - Unspecified chronic bronchitis (6) Hypercholesteremia Current Visit: No Status: Chronic Comment: NO MEDS. (7) Insomnia Current Visit: No Status: Chronic Qualifiers: Insomnia type: alcohol-induced Qualified Code(s): F10.982 - Alcohol use, unspecified with alcohol-induced sleep disorder (8) Hx of left knee surgery Current Visit: Yes Status: Acute Cleared for Admission [facility] - Detox or Rehab [facility] Level of Care: Medically Managed Detox Regimen/Protocol: Librium S Breath Alcohol Content Breath Alcohol Content: 0.267 Urine Drug Screen - Results Drug Screen Negative: No Urine Drug Screen Results: BZO-Benzodiazepines
[2017-01-09] MEDS ORDERED: P-EPHED 60MG/TRIPROLIDI 2.5MG TABLET PO PRN (15:55)
[2017-01-09] MEDS ORDERED: MAG HYDROX/AL HYDROX/SIMETH 30 ML UNIT-DOSE CUP PO PRN (15:55)
[2017-01-09] MEDS ORDERED: MENTHOL/PHENOL 1 EACH UD MM PRN (15:55)
[2017-01-09] MEDS ORDERED: chlordiazePOXIDE HCL 25 MG CAPSULE PO PRN (15:55)
[2017-01-09] MEDS ORDERED: IBUPROFEN 400 MG TABLET (FP) PO PRN (15:55)
[2017-01-09] MEDS ORDERED: ACETAMINOPHEN 325 MG TABLET (FP) PO PRN (15:55)
[2017-01-09] MEDS ORDERED: LOPERAMIDE HCL 2 MG CAPSULE PO PRN (15:55)
[2017-01-09] MEDS ORDERED: guaiFENesin/D-METHORPHAN HB 10 ML UNIT-DOSE CUPS PO PRN (15:55)
[2017-01-09] MEDS ORDERED: MAGNESIUM CITRATE 300 ML BOTTLE PO PRN (15:55)
[2017-01-09] MEDS ORDERED: MAGNESIUM HYDROX 2400MG/30ML ORAL SUSPENSION 30 ML CUP PO PRN (15:55)
[2017-01-09] MEDS ORDERED: ALBUTEROL SO4 18 GM HFA INHALER IH PRN (15:57)
[2017-01-09] MEDS ORDERED: chlordiazePOXIDE HCL 25 MG CAPSULE PO ONE (16:30)
[2017-01-09 22:26] LABS: URINE APPEARANCE CLEAR; URINE BILIRUBIN NEGATIVE (NEGATIVE); URINE BLOOD NEGATIVE (NEGATIVE); URINE COLOR STRAW; URINE GLUCOSE (UA) NEGATIVE (NEGATIVE); URINE KETONE NEGATIVE (NEGATIVE); URINE NITRITE NEGATIVE (NEGATIVE); URINE PROTEIN NEGATIVE (NEGATIVE); URINE UROBILINOGEN NEGATIVE mg/dL (0.2-1.0)
[2017-01-09] MEDS: THIAMINE HCL 100 MG TABLET (FP) PO SCH (22:27)
[2017-01-09] MEDS: hydrOXYzine PAMOATE 25 MG CAPSULE (FP) PO PRN (22:27)
[2017-01-09] MEDS: chlordiazePOXIDE HCL 25 MG CAPSULE PO SCH (22:27)
[2017-01-10] MEDS: chlordiazePOXIDE HCL 25 MG CAPSULE PO SCH ×4 (05:41→22:32)
--- NOTE | 2017-01-10 08:29 | CONSULT ---
[facility] Psychiatric Consult - Data Date of interview: 01/10/17 Admission source: [facility] Identifying data: This is 56 years old male with no psychiatric hospitalization history, intoxicated with: Alcohol and Nicotine Substance Abuse History: - Smoking Cessation. Smoking history: Current every day smoker. Have you smoked in the past 12 months: Yes. Aproximately how many cigarettes per day: 7. Cigars Per Day: 0. Hx Chewing Tobacco Use: No. Initiated information on smoking cessation: Yes. 'Breaking Loose' booklet given : 01/09/17. - Substance & Tx. History. Hx Alcohol Use: Yes. Hx Substance Use : Yes. Substance Use Type: Alcohol. Hx Substance Use Treatment: Yes ([facility] 12/07[facility]16 not completed). - Substances Abused. Alcohol. Route: Oral. Frequency: Daily. Amount used: 2 BOTTLES OF WINE 2 BOTTLES [place] 2 40 OZ BEERS. Age of first use: 21. Date of Last Use: 01/09/17 Medical History: s/p left knee sirgery, Syncope, Weight loss history, COPD, Hypercholesterolemia Psychiatric History: Patient reports histpory of depression and anxiety, reports taking prior to admission: Remeron 15mg po qhs. Lexapro 20mg poqd Physical/Sexual Abuse/Trauma History: Denies Additional Comment: Remeron 15mg po qhs. Lexapro 20mg poqd Mental Status Exam - Mental Status Exam Alert and Oriented to: Person Cognitive Function: Fair Patient Appearance: Unkempt Mood: Sad Affect: Flat Patient Behavior: Cooperative Speech Pattern: Appropriate Voice Loudness: Mildly Soft/Quiet Thought Process: Goal Oriented Thought Disorder: Being Controlled Hallucinations: Denies Suicidal Ideation: Denies Homicidal Ideation: Denies Insight/Judgement: Fair Sleep: Difficulty falling asleep Appetite: Fair Muscle strength/Tone: Mild Hypotonicity Gait/Station: Spastic Additional Comments: Remeron 15mg po qhs. Lexapro 20mg poqd Psychiatric Findings - Problem List ([place] 1, 2,3) (1) Alcohol dependence with uncomplicated withdrawal Current Visit: No Status: Acute (2) Nicotine dependence Current Visit: No Status: Acute Qualifiers: Nicotine product type: cigarettes Substance use status: in withdrawal Qualified Code(s): F17.213 - Nicotine dependence, cigarettes, with withdrawal (3) Substance-induced sleep disorder Current Visit: No Status: Acute (4) Anxiety disorder Current Visit: No Status: Chronic Qualifiers: Anxiety disorder type: unspecified anxiety disorder Qualified Code(s): F41.9 - Anxiety disorder, unspecified (5) MDD (major depressive disorder) Current Visit: No Status: Chronic (6) Drug-induced mood disorder Current Visit: No Status: Suspected - Initial Treatment Plan Initial Treatment Plan: Remeron 15mg po qhs. Lexapro 20mg poqd
[2017-01-10] MEDS: PRENATAL VITAMINS W/ FOLIC ACID TABLET (FP) PO SCH (10:14)
[2017-01-10] MEDS: ESCITALOPRAM OXALATE 20 MG TABLET (FP) PO SCH (10:15)
[2017-01-10 10:32] LABS: MCH 33.3 pg (25.7-33.7); MCHC 33.2 g/dl (32.0-35.9); MEAN CELL VOLUME 100.2 fl (80-96); MEAN PLT VOLUME 8.3 fl (7.5-11.1); PLATELET COUNT 205 K/MM3 (134-434); RDW 15.3 % (11.9-15.9); WHITE BLOOD COUNT 7.1 K/mm3 (4.0-10.0)
[2017-01-10 10:48] LABS: URINE LEUK ESTERASE TRACE (NEGATIVE)
[2017-01-10 10:59] LABS: ALBUMIN 3.1 g/dl (3.4-5.0); ANION GAP 6 (8-16); CO2 27 mmol/L (21-32); GLUCOSE,RANDOM 91 mg/dL (74-106); SGOT/AST 35 U/L (15-37); SGPT/ALT 40 U/L (12-78)
[2017-01-10 11:01] LABS: ALK PHOS 93 U/L (45-117); BILIRUBIN,TOTAL 0.5 mg/dL (0.2-1.0); CALCIUM 9.1 mg/dL (8.5-10.1); CREATININE 0.9 mg/dL (0.7-1.3); TOT PROT 6.5 g/dl (6.4-8.2)
[2017-01-10] MEDS: NICOTINE 21 MG/24 HOURS TOPICAL PATCH TD SCH (11:38)
--- NOTE | 2017-01-10 12:05 | PN ---
S CIWA - CIWA Score Nausea/Vomitin Muscle Tremors: 3 Anxiety: 3 Agitation: 2 Paroxysmal Sweats: 1-Minimal Palms Moist Orientation: 0-Oriented Tacttile Disturbances: 1-Very Mild Itch/Numbness Auditory Disturbances: 1-Very Mild Visual Disturbances: 0-None Headache: 2-Mild CIWA-Ar Total Score: 16 [facility] Progress Note (SOAP) Subjective: ALERT,IRRITABLE,ANXIOUS,INTERRUPTED SLEEP,TREMOR Objective: 01/10/17 12:03 Vital Signs Temperature 97.9 F 01/10/17 10:40 Pulse Rate 81 01/10/17 10:40 Respiratory Rate 20 01/10/17 10:40 Blood Pressure 136/105 01/10/17 10:40 O2 Sat by Pulse Oximetry (%) EKG NSR,NORMAL ECG Laboratory Last Values WBC 7.1 K/mm3 (4.0-10.0) 01/10/17 04:00 RBC 4.40 M/mm3 (4.00-5.60) 01/10/17 04:00 Hgb 14.6 GM/dL (11.7-16.9) 01/10/17 04:00 Hct 44.1 % (35.4-49) 01/10/17 04:00 MCV 100.2 fl (80-96) H 01/10/17 04:00 MCH 33.3 pg (25.7-33.7) 01/10/17 04:00 MCHC 33.2 g/dl (32.0-35.9) 01/10/17 04:00 RDW 15.3 % (11.9-15.9) D 01/10/17 04:00 Plt Count 205 K/MM3 (134-434) 01/10/17 04:00 MPV 8.3 fl (7.5-11.1) 01/10/17 04:00 Sodium 140 mmol/L (136-145) 01/10/17 04:00 Potassium 4.5 mmol/L (3.5-5.1) 01/10/17 04:00 Chloride 107 mmol/L (98-107) 01/10/17 04:00 Carbon Dioxide 27 mmol/L (21-32) 01/10/17 04:00 Anion Gap 6 (8-16) L 01/10/17 04:00 BUN 7 mg/dL (7-18) D 01/10/17 04:00 Creatinine 0.9 mg/dL (0.7-1.3) 01/10/17 04:00 Creat Clearance w eGFR > 60 (>60) 01/10/17 04:00 Random Glucose 91 mg/dL (74-106) D 01/10/17 04:00 Calcium 9.1 mg/dL (8.5-10.1) 01/10/17 04:00 Total Bilirubin 0.5 mg/dL (0.2-1.0) D 01/10/17 04:00 AST 35 U/L (15-37) 01/10/17 04:00 ALT 40 U/L (12-78) 01/10/17 04:00 Alkaline Phosphatase 93 U/L (45-117) 01/10/17 04:00 Total Protein 6.5 g/dl (6.4-8.2) 01/10/17 04:00 Albumin 3.1 g/dl (3.4-5.0) L 01/10/17 04:00 Urine Color Straw 01/09/17 18:56 Urine Appearance Clear 01/09/17 18:56 Urine pH 5.0 (5.0-8.0) 01/09/17 18:56 Ur Specific [place] 1.003 (1.001-1.035) 01/09/17 18:56 Urine Protein Negative (NEGATIVE) 01/09/17 18:56 Urine Glucose (UA) Negative (NEGATIVE) 01/09/17 18:56 Urine Ketones Negative (NEGATIVE) 01/09/17 18:56 Urine Blood Negative (NEGATIVE) 01/09/17 18:56 Urine Nitrite Negative (NEGATIVE) 01/09/17 18:56 Urine Bilirubin Negative (NEGATIVE) 01/09/17 18:56 Urine Urobilinogen Negative mg/dL (0.2-1.0) 01/09/17 18:56 Ur Leukocyte Esterase Trace (NEGATIVE) H 01/09/17 18:56 Assessment: 01/10/17 12:04 WITHDRAWAL SYMPTOM Plan: CONTINUE DETOX
--- NOTE | 2017-01-10 12:35 | EKG ---
Test Reason : Blood Pressure : / mmHG Vent. Rate : 083 BPM Atrial Rate : 083 BPM P-R Int : 174 ms QRS Dur : 088 ms QT Int : 344 ms P-R-T Axes : 050 070 051 degrees QTc Int : 404 ms NORMAL SINUS RHYTHM NORMAL ECG WHEN COMPARED WITH ECG OF 05-DEC-2016 15:14, NO SIGNIFICANT CHANGE WAS FOUND Confirmed by TERRENCE MCKINGHT MD ([id number]) on 01/10/2017 12:35:00 PM Referred By: Confirmed By:TERRENCE MCKNIGHT MD
[2017-01-10 13:27] LABS: URINE RBC 0-1 /hpf (0-3)
[2017-01-10] MEDS: THIAMINE HCL 100 MG TABLET (FP) PO SCH (22:32)
[2017-01-10] MEDS: MIRTAZAPINE 15 MG TABLET (FP) PO SCH (22:32)
[2017-01-11] MEDS: chlordiazePOXIDE HCL 25 MG CAPSULE PO SCH ×3 (06:00→17:39)
--- NOTE | 2017-01-11 09:53 | PN ---
S CIWA - CIWA Score Nausea/Vomitin Muscle Tremors: 3 Anxiety: 3 Agitation: 1-Slight > Activity Paroxysmal Sweats: 3 Orientation: 0-Oriented Tacttile Disturbances: 2-Mild Itch/Numbness/Burn Auditory Disturbances: 0-None Visual Disturbances: 0-None Headache: 1-Very Mild CIWA-Ar Total Score: 15 [facility] Progress Note (SOAP) Subjective: achy, sweats, shakes Objective: 01/11/17 09:50 Vital Signs Temperature 98.3 F 01/11/17 07:27 Pulse Rate 100 H 01/11/17 07:27 Respiratory Rate 20 01/11/17 07:27 Blood Pressure 146/87 01/11/17 07:27 O2 Sat by Pulse Oximetry (%) Laboratory Tests 01/09/17 01/10/17 01/10/17 18:56 04:00 04:00 WBC 7.1 RBC 4.40 Hgb 14.6 Hct 44.1 MCV 100.2 H MCH 33.3 MCHC 33.2 RDW 15.3 D Plt Count 205 MPV 8.3 Sodium 140 Potassium 4.5 Chloride 107 Carbon Dioxide 27 Anion Gap 6 L BUN 7 D Creatinine 0.9 Creat Clearance w eGFR > 60 Random Glucose 91 D Calcium 9.1 Total Bilirubin 0.5 D AST 35 ALT 40 Alkaline Phosphatase 93 Total Protein 6.5 Albumin 3.1 L Urine Color Straw Urine Appearance Clear Urine pH 5.0 Ur Specific [place] 1.003 Urine Protein Negative Urine Glucose (UA) Negative Urine Ketones Negative Urine Blood Negative Urine Nitrite Negative Urine Bilirubin Negative Urine Urobilinogen Negative Ur Leukocyte Esterase Trace H Urine RBC 0-1 Urine WBC 2-4 RPR Titer 01/10/17 04:00 WBC RBC Hgb Hct MCV MCH MCHC RDW Plt Count MPV Sodium Potassium Chloride Carbon Dioxide Anion Gap BUN Creatinine Creat Clearance w eGFR Random Glucose Calcium Total Bilirubin AST ALT Alkaline Phosphatase Total Protein Albumin Urine Color Urine Appearance Urine pH Ur Specific [place] Urine Protein Urine Glucose (UA) Urine Ketones Urine Blood Urine Nitrite Urine Bilirubin Urine Urobilinogen Ur Leukocyte Esterase Urine RBC Urine WBC RPR Titer Nonreactive pt aox3 lying in bed Assessment: 01/11/17 09:51 withdrawal sx's 01/11/17 09:52 high mcv Plan: cont. detox increase fluids cont . meds
[2017-01-11] MEDS: hydrOXYzine PAMOATE 25 MG CAPSULE (FP) PO PRN (10:13)
[2017-01-11] MEDS: ESCITALOPRAM OXALATE 20 MG TABLET (FP) PO SCH (10:13)
[2017-01-11] MEDS: PRENATAL VITAMINS W/ FOLIC ACID TABLET (FP) PO SCH (10:13)
[2017-01-11] MEDS: NICOTINE 21 MG/24 HOURS TOPICAL PATCH TD SCH (10:14)
[2017-01-11] MEDS ORDERED: cloNIDine HCL 0.1 MG TABLET PO ONE (10:34)
[2017-01-11] MEDS: chlordiazePOXIDE 5 MG CAPSULE PO SCH (22:20)
[2017-01-11] MEDS: MIRTAZAPINE 15 MG TABLET (FP) PO SCH (22:21)
[2017-01-11] MEDS: THIAMINE HCL 100 MG TABLET (FP) PO SCH (22:21)
[2017-01-12] MEDS: chlordiazePOXIDE 5 MG CAPSULE PO SCH ×3 (05:10→17:42)
[2017-01-12] MEDS: NICOTINE 21 MG/24 HOURS TOPICAL PATCH TD SCH (10:20)
[2017-01-12] MEDS: PRENATAL VITAMINS W/ FOLIC ACID TABLET (FP) PO SCH (10:20)
[2017-01-12] MEDS: ESCITALOPRAM OXALATE 20 MG TABLET (FP) PO SCH (10:20)
[2017-01-12] MEDS: ENALAPRIL MALEATE 5 MG TABLET (FP) PO SCH (11:51)
--- NOTE | 2017-01-12 15:22 | PN ---
[facility] Progress Note (SOAP) Subjective: Sweating,interrupted sleep,restless Objective: 01/12/17 15:20 Vital Signs - 8 hr 01/12/17 01/12/17 10:00 14:14 Temperature 97.5 F L 97.5 F L Pulse Rate 78 87 Respiratory 18 18 Rate Blood Pressure 137/93 121/76 Laboratory Tests 01/09/17 01/10/17 01/10/17 18:56 04:00 04:00 WBC 7.1 RBC 4.40 Hgb 14.6 Hct 44.1 MCV 100.2 H MCH 33.3 MCHC 33.2 RDW 15.3 D Plt Count 205 MPV 8.3 Sodium 140 Potassium 4.5 Chloride 107 Carbon Dioxide 27 Anion Gap 6 L BUN 7 D Creatinine 0.9 Creat Clearance w eGFR > 60 Random Glucose 91 D Calcium 9.1 Total Bilirubin 0.5 D AST 35 ALT 40 Alkaline Phosphatase 93 Total Protein 6.5 Albumin 3.1 L Urine Color Straw Urine Appearance Clear Urine pH 5.0 Ur Specific [place] 1.003 Urine Protein Negative Urine Glucose (UA) Negative Urine Ketones Negative Urine Blood Negative Urine Nitrite Negative Urine Bilirubin Negative Urine Urobilinogen Negative Ur Leukocyte Esterase Trace H Urine RBC 0-1 Urine WBC 2-4 RPR Titer 01/10/17 04:00 WBC RBC Hgb Hct MCV MCH MCHC RDW Plt Count MPV Sodium Potassium Chloride Carbon Dioxide Anion Gap BUN Creatinine Creat Clearance w eGFR Random Glucose Calcium Total Bilirubin AST ALT Alkaline Phosphatase Total Protein Albumin Urine Color Urine Appearance Urine pH Ur Specific [place] Urine Protein Urine Glucose (UA) Urine Ketones Urine Blood Urine Nitrite Urine Bilirubin Urine Urobilinogen Ur Leukocyte Esterase Urine RBC Urine WBC RPR Titer Nonreactive labs noted Assessment: 01/12/17 15:21 Withdrawal sx. Plan: Continue detox
[2017-01-12] MEDS: chlordiazePOXIDE HCL 10 MG CAPSULE PO SCH (22:37)
[2017-01-12] MEDS: THIAMINE HCL 100 MG TABLET (FP) PO SCH (22:37)
[2017-01-12] MEDS: MIRTAZAPINE 15 MG TABLET (FP) PO SCH (22:37)
[2017-01-12] MEDS: hydrOXYzine PAMOATE 25 MG CAPSULE (FP) PO PRN (23:52)
[2017-01-13] MEDS: chlordiazePOXIDE HCL 10 MG CAPSULE PO SCH (05:36)
[2017-01-13 06:28] VITALS: BP 107/63; PULSE 67; TEMP 97.7
[2017-01-13] MEDS: PRENATAL VITAMINS W/ FOLIC ACID TABLET (FP) PO SCH (08:59)
[2017-01-13] MEDS: ESCITALOPRAM OXALATE 20 MG TABLET (FP) PO SCH (08:59)
[2017-01-13] MEDS: ENALAPRIL MALEATE 5 MG TABLET (FP) PO SCH (08:59)
--- NOTE | 2017-01-13 14:00 | DS ---
[facility] Detox Discharge Summary Admission Date: 01/09/17 Discharge Date: 01/13/17 - History Present History: Alcohol Dependence Pertinent Past History: COPD Hypercholesterolemia - Physical Exam Results Vital Signs: Vital Signs Temperature 97.7 F 01/13/17 06:00 Pulse Rate 67 01/13/17 06:00 Respiratory Rate 16 01/13/17 06:00 Blood Pressure 107/63 01/13/17 06:00 O2 Sat by Pulse Oximetry (%) Pertinent Admission Physical Exam Findings: Withdrawal sx. Laboratory Last Values WBC 7.1 K/mm3 (4.0-10.0) 01/10/17 04:00 RBC 4.40 M/mm3 (4.00-5.60) 01/10/17 04:00 Hgb 14.6 GM/dL (11.7-16.9) 01/10/17 04:00 Hct 44.1 % (35.4-49) 01/10/17 04:00 MCV 100.2 fl (80-96) H 01/10/17 04:00 MCH 33.3 pg (25.7-33.7) 01/10/17 04:00 MCHC 33.2 g/dl (32.0-35.9) 01/10/17 04:00 RDW 15.3 % (11.9-15.9) D 01/10/17 04:00 Plt Count 205 K/MM3 (134-434) 01/10/17 04:00 MPV 8.3 fl (7.5-11.1) 01/10/17 04:00 Sodium 140 mmol/L (136-145) 01/10/17 04:00 Potassium 4.5 mmol/L (3.5-5.1) 01/10/17 04:00 Chloride 107 mmol/L (98-107) 01/10/17 04:00 Carbon Dioxide 27 mmol/L (21-32) 01/10/17 04:00 Anion Gap 6 (8-16) L 01/10/17 04:00 BUN 7 mg/dL (7-18) D 01/10/17 04:00 Creatinine 0.9 mg/dL (0.7-1.3) 01/10/17 04:00 Creat Clearance w eGFR > 60 (>60) 01/10/17 04:00 Random Glucose 91 mg/dL (74-106) D 01/10/17 04:00 Calcium 9.1 mg/dL (8.5-10.1) 01/10/17 04:00 Total Bilirubin 0.5 mg/dL (0.2-1.0) D 01/10/17 04:00 AST 35 U/L (15-37) 01/10/17 04:00 ALT 40 U/L (12-78) 01/10/17 04:00 Alkaline Phosphatase 93 U/L (45-117) 01/10/17 04:00 Total Protein 6.5 g/dl (6.4-8.2) 01/10/17 04:00 Albumin 3.1 g/dl (3.4-5.0) L 01/10/17 04:00 Urine Color Straw 01/09/17 18:56 Urine Appearance Clear 01/09/17 18:56 Urine pH 5.0 (5.0-8.0) 01/09/17 18:56 Ur Specific [place] 1.003 (1.001-1.035) 01/09/17 18:56 Urine Protein Negative (NEGATIVE) 01/09/17 18:56 Urine Glucose (UA) Negative (NEGATIVE) 01/09/17 18:56 Urine Ketones Negative (NEGATIVE) 01/09/17 18:56 Urine Blood Negative (NEGATIVE) 01/09/17 18:56 Urine Nitrite Negative (NEGATIVE) 01/09/17 18:56 Urine Bilirubin Negative (NEGATIVE) 01/09/17 18:56 Urine Urobilinogen Negative mg/dL (0.2-1.0) 01/09/17 18:56 Ur Leukocyte Esterase Trace (NEGATIVE) H 01/09/17 18:56 Urine RBC 0-1 /hpf (0-3) 01/09/17 18:56 Urine WBC 2-4 (0-2) 01/09/17 18:56 RPR Titer Nonreactive (NONREACTIVE) 01/10/17 04:00 labs noted - Treatment Hospital Course: Detox Protocol Followed, Detoxed Safely, Responded well, Discharged Condition Good Patient has Accepted a Rehab Referral to: 12 step meetings - Medication Discharge Medications: Ambulatory Orders Mirtazapine [Remeron -] 15 mg PO HS 04/20/16 Albuterol Sulfate Inhaler - [Ventolin HFA Inhaler -] 2 inh IH Q4H PRN #1 inhaler 04/24/16 Escitalopram Oxalate [Lexapro -] 20 mg PO DAILY #30 tablet 01/10/17 Mirtazapine [Remeron -] 15 mg PO HS #30 tablet 01/10/17 - Diagnosis (1) Alcohol dependence with uncomplicated withdrawal Status: Acute (2) Nicotine dependence Status: Acute Qualifiers: Nicotine product type: cigarettes Substance use status: in withdrawal Qualified Code(s): F17.213 - Nicotine dependence, cigarettes, with withdrawal (3) Substance-induced sleep disorder Status: Acute (4) Anxiety disorder Status: Chronic Qualifiers: Anxiety disorder type: unspecified anxiety disorder Qualified Code(s): F41.9 - Anxiety disorder, unspecified (5) COPD (chronic obstructive pulmonary disease) Status: Chronic Qualifiers: COPD type: chronic bronchitis Chronic bronchitis type: unspecified Qualified Code(s): J42 - Unspecified chronic bronchitis (6) Hypercholesteremia Status: Chronic (7) MDD (major depressive disorder) Status: Chronic (8) Drug-induced mood disorder Status: Suspected - AMA Did Patient Leave Against Medical Advice: No
== END 2017-01-13 09:04 | disposition home or self-care (01) | DRG 775 ==
LOC: YASAS 11:50 → Y6N 15:49
PROVIDERS: ADMIT Internal Medicine; ATTEND Internal Medicine
PROC: HZ2ZZZZ Detoxification Services for Substance Abuse Treatment (ICD-10-PCS; principal; 2017-01-09)
DX: F10.230 Alcohol dependence with withdrawal, uncomplicated (principal); F17.210 Nicotine dependence, cigarettes, uncomplicated; F33.9 Major depressive disorder, recurrent, unspecified; F19.24 Other psychoactive substance dependence with psychoactive substance-induced mood disorder; F19.282 Other psychoactive substance dependence with psychoactive substance-induced sleep disorder; F19.280 Other psychoactive substance dependence with psychoactive substance-induced anxiety disorder; F41.9 Anxiety disorder, unspecified; J42 Unspecified chronic bronchitis; E78.00 Pure hypercholesterolemia, unspecified
CPT/HCPCS: 36415; 80053; 81003; 81015; 85027; 86593; 93005; 93010

== ENCOUNTER 2017-06-20 08:26 | Inpatient (IN) | payer OTHER ==
[2017-06-20 09:17] VITALS: BMI 23.0
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
[2017-06-20] MEDS ORDERED: guaiFENesin/D-METHORPHAN HB 10 ML UNIT-DOSE CUPS PO PRN (10:15)
[2017-06-20] MEDS ORDERED: P-EPHED 60MG/TRIPROLIDI 2.5MG TABLET PO PRN (10:15)
[2017-06-20] MEDS ORDERED: MAGNESIUM HYDROX 2400MG/30ML ORAL SUSPENSION 30 ML CUP PO PRN (10:15)
[2017-06-20] MEDS ORDERED: MAG HYDROX/AL HYDROX/SIMETH 30 ML UNIT-DOSE CUP PO PRN (10:15)
[2017-06-20] MEDS ORDERED: ACETAMINOPHEN 325 MG TABLET (FP) PO PRN (10:15)
[2017-06-20] MEDS ORDERED: IBUPROFEN 400 MG TABLET (FP) PO PRN (10:15)
[2017-06-20] MEDS ORDERED: NICOTINE POLACRILEX 2 MG GUM BUC PRN (10:15)
[2017-06-20] MEDS ORDERED: MENTHOL/PHENOL 1 EACH UD MM PRN (10:15)
[2017-06-20] MEDS ORDERED: MAGNESIUM CITRATE 300 ML BOTTLE PO PRN (10:15)
[2017-06-20] MEDS ORDERED: chlordiazePOXIDE HCL 25 MG CAPSULE PO PRN (10:15)
[2017-06-20] MEDS ORDERED: LOPERAMIDE HCL 2 MG CAPSULE PO PRN (10:15)
[2017-06-20] MEDS ORDERED: hydrOXYzine PAMOATE 50 MG CAPSULE (FP) PO PRN (10:15)
[2017-06-20] MEDS ORDERED: ALBUTEROL SO4 18 GM HFA INHALER IH PRN (10:17)
--- NOTE | 2017-06-20 10:23 | PN ---
[facility] Progress Note Note: Patient reported falling prior to admission in waiting room - reports sliding off chair onto bottom, reports no injuries, did not hit head, PE unremarkable, patient refusing ED visit and CT scan of head. fall protocol 1 ordered, patient signed refusal of care form. Occurrence report completed.
[2017-06-20] MEDS ORDERED: METHADONE HCL 10 MG TABLET (FOR DETOX USE ONLY) PO ONE ×2 (10:45→23:00)
[2017-06-20] MEDS ORDERED: chlordiazePOXIDE HCL 25 MG CAPSULE PO ONE (10:45)
[2017-06-20] MEDS: cloNIDine HCL 0.1 MG TABLET PO SCH ×2 (11:54→22:26)
[2017-06-20] MEDS: NAPROXEN 500 MG TABLET (FP) PO SCH ×2 (11:54→22:27)
[2017-06-20] MEDS: NICOTINE 21 MG/24 HOURS TOPICAL PATCH TD SCH (11:55)
[2017-06-20] MEDS: PANTOPRAZOLE 40 MG TABLET (FP) PO SCH (11:55)
[2017-06-20 12:54] LABS: HEMATOCRIT 48.4 % (35.4-49); HEMOGLOBIN 16.4 GM/dL (11.7-16.9); MCH 32.3 pg (25.7-33.7); MCHC 33.9 g/dl (32.0-35.9); MEAN CELL VOLUME 95.3 fl (80-96); MEAN PLT VOLUME 7.6 fl (7.5-11.1); PLATELET COUNT 265 K/MM3 (134-434); RBC 5.08 M/mm3 (4.00-5.60); WHITE BLOOD COUNT 10.5 K/mm3 (4.0-10.0)
[2017-06-20 13:11] LABS: CHLORIDE 102 mmol/L (98-107); POTASSIUM 4.2 mmol/L (3.5-5.1); SODIUM 137 mmol/L (136-145)
[2017-06-20 13:28] LABS: ALBUMIN 3.6 g/dl (3.4-5.0); ALK PHOS 150 U/L (45-117); ANION GAP 10 (8-16); BILIRUBIN,TOTAL 0.3 mg/dL (0.2-1.0); BLOOD UREA NITROGEN 7 mg/dL (7-18); CALCIUM 8.6 mg/dL (8.5-10.1); CO2 25 mmol/L (21-32); CREATININE 0.9 mg/dL (0.7-1.3); GLUCOSE,RANDOM 96 mg/dL (74-106); SGOT/AST 33 U/L (15-37); SGPT/ALT 23 U/L (12-78); TOT PROT 7.8 g/dl (6.4-8.2)
--- NOTE | 2017-06-20 13:38 | CONSULT ---
[facility] Psychiatric Consult - Data Date of interview: 06/20/17 Admission source: [facility] Identifying data: Patient is a 56 year old male, unemployed, not receiving any financial benefits, and currently living in his family's house. Patient admitted to detox for alcohol, cocaine and opiate dependence. Substance Abuse History: Following information confirmed with Mr. Metcalf: Smoking Cessation. Smoking history: Current every day smoker. Have you smoked in the past 12 months: Yes. Aproximately how many cigarettes per day: 7. Cigars Per Day: 0. Hx Chewing Tobacco Use: No. Initiated information on smoking cessation: Yes. 'Breaking Loose' booklet given: 06/20/17. - Substance & Tx. History. Hx Alcohol Use: Yes. Hx Substance Use: Yes. Substance Use Type : Alcohol, Cocaine, Heroin, Opiates. Hx Substance Use Treatment: Yes. - Substances Abused. Heroin. Route: Inhalation. Frequency: Daily. Amount used: 4 bags. Age of first use: 55. Date of Last Use: 06/20/17. Alcohol. Route: Oral. Frequency: Daily. Amount used: 2 bottles wine/ 2 40 oz malt liquor. Age of first use: 17. Date of Last Use: 06/20/17. Cocaine. Route : Inhalation. Frequency: 1-3 times last 30 days. Amount used: 1.5g. Age of first use: 40. Date of Last Use: 06/06/17 Medical History: hypertension, hypercholesterolemia Psychiatric History: Pt. presents as fatigued and mildly sedated and is therefore unable to provide a cohesive psychiatric history. Patient denies h/o psychiatric hospitalizations. States he last saw a psychiatrist in February- March of 2016 and was prescribed lexapro 40mg and mirtzapine 45mg. States he is currently receiving his medication refills from a clinic called [facility]. As per pharmacy claims patient is prescribed Mirtzapine 15mg + Lexapro 20mg + Topamax 50mg. Pt. requesting to only take the mirtzapine 15 qhs. Pt. denies h/o suicide attempt. Pt. currently denies suicidal and homicidal ideation. Physical/Sexual Abuse/Trauma History: Denies. Mental Status Exam - Mental Status Exam Alert and Oriented to: Time, Place, Person Cognitive Function: Good Patient Appearance: Well Groomed Mood: Withdrawn Affect: Mood Congruent Patient Behavior: Sedated, Fatigued, Guarded Speech Pattern: Delayed Voice Loudness: Moderately Soft/Quiet Thought Process: Goal Oriented Thought Disorder: Not Present Hallucinations: Denies Suicidal Ideation: Denies Homicidal Ideation: Denies Insight/Judgement: Poor Sleep: Poorly Appetite: Fair Muscle strength/Tone: Normal Gait/Station: Normal Psychiatric Findings - Problem List ([place] 1, 2,3) (1) Substance induced mood disorder Current Visit: Yes Status: Acute (2) Alcohol dependence with uncomplicated withdrawal Current Visit: Yes Status: Acute (3) Opioid dependence Current Visit: Yes Status: Acute - Initial Treatment Plan Initial Treatment Plan: Psychoeducation provided. Detoxification in progress. Pt. refuses to accept lexapro and topamax while in detox. Mirtzapine 15mg qhs ordered. Benefits and side effects discussed. Verbal consent given.
[2017-06-20] MEDS: CYCLOBENZAPRINE HCL 5 MG TABLET PO SCH ×2 (14:30→22:27)
--- NOTE | 2017-06-20 16:16 | EKG ---
Test Reason : Blood Pressure : / mmHG Vent. Rate : 089 BPM Atrial Rate : 089 BPM P-R Int : 172 ms QRS Dur : 084 ms QT Int : 348 ms P-R-T Axes : 052 057 042 degrees QTc Int : 423 ms NORMAL SINUS RHYTHM NORMAL ECG WHEN COMPARED WITH ECG OF 09-JAN-2017 17:47, NO SIGNIFICANT CHANGE WAS FOUND Confirmed by TERRENCE MCKNIGHT MD ([id number]) on 06/20/2017 4:15:43 PM Referred By: Confirmed By:TERRENCE MCKNIGHT MD
[2017-06-20] MEDS: chlordiazePOXIDE HCL 25 MG CAPSULE PO SCH ×2 (17:22→22:26)
[2017-06-20] MEDS ORDERED: MELATONIN 5 MG TABLETS PO PRN (22:00)
[2017-06-20] MEDS ORDERED: ZOLPIDEM TARTRATE 10 MG TABLET (PARK CARE ONLY) PO PRN (22:00)
[2017-06-20] MEDS: THIAMINE HCL 100 MG TABLET (FP) PO SCH (22:26)
[2017-06-20] MEDS: MIRTAZAPINE 15 MG TABLET (FP) PO SCH (22:27)
[2017-06-21] MEDS: CYCLOBENZAPRINE HCL 5 MG TABLET PO SCH ×3 (06:05→22:33)
[2017-06-21] MEDS: chlordiazePOXIDE HCL 25 MG CAPSULE PO SCH ×4 (06:05→22:33)
[2017-06-21] MEDS ORDERED: PRENATAL VITAMINS W/ FOLIC ACID TABLET (FP) PO SCH (10:00)
[2017-06-21] MEDS ORDERED: METHADONE HCL 10 MG TABLET (FOR DETOX USE ONLY) PO SCH (10:00)
[2017-06-21 10:23] LABS: URINE APPEARANCE TURBID; URINE BILIRUBIN NEGATIVE (<2.0 mg/dL); URINE BLOOD NEGATIVE (NEGATIVE); URINE COLOR AMBER; URINE GLUCOSE (UA) 3+ (NEGATIVE); URINE KETONE NEGATIVE (NEGATIVE); URINE NITRITE NEGATIVE (NEGATIVE); URINE PROTEIN NEGATIVE (NEGATIVE); URINE UROBILINOGEN NEGATIVE mg/dL (0.2-1.0)
[2017-06-21 10:28] LABS: URINE LEUK ESTERASE 2+ (NEGATIVE)
[2017-06-21] MEDS: NAPROXEN 500 MG TABLET (FP) PO SCH ×2 (10:39→22:33)
[2017-06-21] MEDS: PANTOPRAZOLE 40 MG TABLET (FP) PO SCH (10:39)
[2017-06-21] MEDS: NICOTINE 21 MG/24 HOURS TOPICAL PATCH TD SCH (10:39)
[2017-06-21] MEDS: cloNIDine HCL 0.1 MG TABLET PO SCH ×2 (10:39→22:33)
[2017-06-21 11:25] LABS: CALCIUM OXALATE CRYSTALS MODERATE /hpf (NONE SEEN); EPI CELLS RARE /HPF (FEW); URINE BACTERIA MANY /hpf (NONE SEEN); URINE HYALINE CAST 1 /lpf; URINE MUCUS MANY
--- NOTE | 2017-06-21 12:06 | PN ---
[facility] CIWA - CIWA Score Nausea/Vomitin-No Nausea/No Vomiting Muscle Tremors: None Anxiety: 3 Agitation: 2 Paroxysmal Sweats: 3 Orientation: 2-Disoriented Date<2 days Tacttile Disturbances: 3-Moderate Itch/Numb/Burn Auditory Disturbances: 1-Very Mild Visual Disturbances: 2-Mild Sensitivity Headache: 0-None Present CIWA-Ar Total Score: 16 S COWS - Scale Resting Pulse: 0= OK 80 or Below Sweatin=Flushed/Facial Moisture Restless Observation: 1= Difficult to Sit Still Pupil Size: 0= Normal to Room Light Bone or Joint Aches: 0= None Runny Nose/ Eye Tearin= Runny Nose/Eyes GI Upset > 30mins: 0= None Tremor Observation of Outstretched Hands: 0= None Yawning Observation: 2= >3x During Session Anxiety or Irritability: 2=Irritable/Anxious Goose Flesh Skin: 3=Piloerection COWS Score: 12 S Progress Note (SOAP) Subjective: Sweating, Fatigue, Anxious, Interrupted Sleep. Objective: PATIENT A & O X 2 (UNCERTAIN ABOUT CURRENT DAY / DATE). NO ACUTE DISTRESS. PATIENT DENIES CHEST PAIN. 06/21/17 12:04 Vital Signs Temperature 96.1 F L 06/21/17 09:13 Pulse Rate 60 06/21/17 11:22 Respiratory Rate 18 06/21/17 11:22 Blood Pressure 129/83 06/21/17 09:13 O2 Sat by Pulse Oximetry (%) Laboratory Tests 06/20/17 06/20/17 06/20/17 10:30 10:30 10:30 WBC 10.5 H D RBC 5.08 Hgb 16.4 D Hct 48.4 MCV 95.3 MCH 32.3 MCHC 33.9 RDW 17.0 H D Plt Count 265 D MPV 7.6 Sodium 137 Potassium 4.2 Chloride 102 Carbon Dioxide 25 Anion Gap 10 BUN 7 Creatinine 0.9 Creat Clearance w eGFR > 60 Random Glucose 96 Calcium 8.6 Total Bilirubin 0.3 D AST 33 ALT 23 D Alkaline Phosphatase 150 H D Total Protein 7.8 Albumin 3.6 Urine Color Urine Appearance Urine pH Ur Specific [place] Urine Protein Urine Glucose (UA) Urine Ketones Urine Blood Urine Nitrite Urine Bilirubin Urine Urobilinogen Ur Leukocyte Esterase Urine WBC (Auto) Urine RBC (Auto) Ur Epithelial Cells Calcium Oxalate Crystal Urine Bacteria Hyaline Casts Urine Mucus RPR Titer Nonreactive 06/21/17 07:30 WBC RBC Hgb Hct MCV MCH MCHC RDW Plt Count MPV Sodium Potassium Chloride Carbon Dioxide Anion Gap BUN Creatinine Creat Clearance w eGFR Random Glucose Calcium Total Bilirubin AST ALT Alkaline Phosphatase Total Protein Albumin Urine Color [place] Urine Appearance Turbid Urine pH 5.0 Ur Specific [place] 1.027 Urine Protein Negative Urine Glucose (UA) 3+ H Urine Ketones Negative Urine Blood Negative Urine Nitrite Negative Urine Bilirubin Negative Urine Urobilinogen Negative Ur Leukocyte Esterase 2+ H Urine WBC (Auto) 15 Urine RBC (Auto) 1 Ur Epithelial Cells Rare Calcium Oxalate Crystal Moderate Urine Bacteria Many Hyaline Casts 1 Urine Mucus Many RPR Titer LABS NOTED. 06/21/17 12:05 Assessment: 06/21/17 12:05 WITHDRAWAL SYMPTOMS. Plan: CONTINUE DETOX. INCREASE DAILY PO FLUID INTAKE. REPEAT UA WITH URINE C + S FOR ADMISSION UA ABNORMALITIES.
[2017-06-21 21:28] LABS: URINE APPEARANCE SLCLOUDY; URINE BILIRUBIN NEGATIVE (<2.0 mg/dL); URINE BLOOD NEGATIVE (NEGATIVE); URINE COLOR YELLOW; URINE GLUCOSE (UA) NEGATIVE (NEGATIVE); URINE KETONE NEGATIVE (NEGATIVE); URINE LEUK ESTERASE NEGATIVE (NEGATIVE); URINE NITRITE NEGATIVE (NEGATIVE); URINE PROTEIN NEGATIVE (NEGATIVE); URINE UROBILINOGEN NEGATIVE mg/dL (0.2-1.0)
[2017-06-21] MEDS: THIAMINE HCL 100 MG TABLET (FP) PO SCH (22:33)
[2017-06-21] MEDS: MIRTAZAPINE 15 MG TABLET (FP) PO SCH (22:33)
[2017-06-21 22:57] VITALS: BP 105/76; PULSE 92; TEMP 97
--- NOTE | 2017-06-22 01:12 | PN ---
[facility] Progress Note Note: LATE ENTRY FOR 06/21/2017 1130PM informed client SIGNED OUT AMA, DOES NOT WANT TO SEE PROVIDER. REPORTS LEAVING FOR A PERSONAL REASON. Vital Signs Temperature 97 F L 06/21/17 22:55 Pulse Rate 92 H 06/21/17 22:55 Respiratory Rate 18 06/21/17 22:55 Blood Pressure 105/76 06/21/17 22:55 O2 Sat by Pulse Oximetry (%)
--- NOTE | 2017-06-22 01:18 | DS ---
[facility] Detox Discharge Summary Admission Date: 06/20/17 Discharge Date: 06/21/17 - History Present History: Alcohol Dependence, Cannabis Dependence, Cocaine Dependence Pertinent Past History: HTN HLD NICOTINE DEP SINCOPE BRONCHITIS - Physical Exam Results Vital Signs: Vital Signs Temperature 97 F L 06/21/17 22:55 Pulse Rate 92 H 06/21/17 22:55 Respiratory Rate 18 06/21/17 22:55 Blood Pressure 105/76 06/21/17 22:55 O2 Sat by Pulse Oximetry (%) Pertinent Admission Physical Exam Findings: WITHDRAWAL SX'S - Treatment Hospital Course: Discharged Condition Good - Medication Discharge Medications: Ambulatory Orders Albuterol Sulfate Inhaler - [Ventolin HFA Inhaler -] 2 inh IH Q4H PRN #1 inhaler 04/24/16 Escitalopram Oxalate [Lexapro -] 20 mg PO DAILY #30 tablet 01/10/17 Mirtazapine [Remeron -] 15 mg PO HS #30 tablet 01/10/17 Naltrexone Microspheres [Vivitrol] 380 mg IM MONTHLY 06/20/17 - Diagnosis (1) Alcohol dependence with uncomplicated withdrawal Status: Acute (2) Cocaine abuse Status: Acute (3) Drug-induced mood disorder Status: Acute (4) Hypertension Status: Acute (5) Injury of left hand Status: Acute (6) Nicotine dependence Status: Acute Qualifiers: Nicotine product type: cigarettes Substance use status: in withdrawal Qualified Code(s): F17.213 - Nicotine dependence, cigarettes, with withdrawal (7) Substance induced mood disorder Status: Acute (8) Substance-induced sleep disorder Status: Acute (9) Syncope Status: Acute Qualifiers: Syncope type: unspecified Qualified Code(s): R55 - Syncope and collapse (10) Unwitnessed fall Status: Acute (11) Weight loss Status: Acute (12) Anxiety disorder Status: Chronic Qualifiers: Anxiety disorder type: unspecified anxiety disorder Qualified Code(s): F41.9 - Anxiety disorder, unspecified (13) COPD (chronic obstructive pulmonary disease) Status: Chronic Qualifiers: COPD type: chronic bronchitis Chronic bronchitis type: unspecified Qualified Code(s): J42 - Unspecified chronic bronchitis (14) Chronic obstructive bronchitis Status: Chronic (15) Hx of left knee surgery Status: Chronic (16) Hypercholesteremia Status: Chronic (17) MDD (major depressive disorder) Status: Chronic Qualifiers: Major depression recurrence: recurrent Active/Remission status: remission status unspecified Qualified Code(s): F33.9 - Major depressive disorder, recurrent, unspecified - AMA Did Patient Leave Against Medical Advice: Yes
[2017-06-22] MEDS ORDERED: METHADONE HCL 5 MG TABLET (FOR DETOX USE ONLY) PO SCH (10:00)
[2017-06-22] MEDS ORDERED: chlordiazePOXIDE 5 MG CAPSULE PO SCH (17:00)
[2017-06-23] MEDS ORDERED: chlordiazePOXIDE HCL 10 MG CAPSULE PO SCH (17:00)
[2017-06-24] MEDS ORDERED: METHADONE HCL 10 MG TABLET (FOR DETOX USE ONLY) PO SCH (10:00)
[2017-06-25] MEDS ORDERED: METHADONE HCL 5 MG TABLET (FOR DETOX USE ONLY) PO SCH (06:00)
--- NOTE | 2017-06-26 09:48 | EKG ---
Test Reason : Blood Pressure : / mmHG Vent. Rate : 064 BPM Atrial Rate : 064 BPM P-R Int : 170 ms QRS Dur : 082 ms QT Int : 408 ms P-R-T Axes : 033 058 044 degrees QTc Int : 420 ms NORMAL SINUS RHYTHM ST ELEVATION, CONSIDER EARLY REPOLARIZATION BORDERLINE ECG WHEN COMPARED WITH ECG OF 20-JUN-2017 12:05, NO SIGNIFICANT CHANGE WAS FOUND Confirmed by JODI CLARKE, MICHAEL ([id number]) on 06/26/2017 9:47:59 AM Referred By: Confirmed By:MICHAEL ZAPATA MD
== END 2017-06-21 23:27 | disposition left against medical advice (07) | DRG 770 ==
LOC: YASAS 08:26 → Y3N 10:32
PROVIDERS: ADMIT Internal Medicine; ATTEND Internal Medicine
PROC: HZ2ZZZZ Detoxification Services for Substance Abuse Treatment (ICD-10-PCS; principal; 2017-06-20)
DX: F11.20 Opioid dependence, uncomplicated (principal); F10.230 Alcohol dependence with withdrawal, uncomplicated; F14.20 Cocaine dependence, uncomplicated; F12.20 Cannabis dependence, uncomplicated; F17.210 Nicotine dependence, cigarettes, uncomplicated; F19.24 Other psychoactive substance dependence with psychoactive substance-induced mood disorder; F19.282 Other psychoactive substance dependence with psychoactive substance-induced sleep disorder; F41.9 Anxiety disorder, unspecified; F33.9 Major depressive disorder, recurrent, unspecified; I10 Essential (primary) hypertension; Z91.14 Patient's other noncompliance with medication regimen; E78.5 Hyperlipidemia, unspecified; J40 Bronchitis, not specified as acute or chronic; R55 Syncope and collapse; S69.82XA Other specified injuries of left wrist, hand and finger(s), initial encounter; R29.6 Repeated falls; R63.4 Abnormal weight loss; Z68.23 Body mass index [BMI] 23.0-23.9, adult; Z88.0 Allergy status to penicillin
CPT/HCPCS: 36415; 80053; 81003; 81015; 85027; 86593; 87086; 93005; 93010; J0735

== ENCOUNTER 2019-04-22 13:08 | Inpatient (IN) | payer OTHER ==
--- NOTE | 2019-04-22 13:32 | BHS.RME ---
Substance Use & Tx History - Substance Use History Alcohol Substance amount: 7 40 oz beers Frequency of use: Daily Substance route: Oral Date of Last Use: 04/22/19 Opiates (Other) Substance amount: 1 30 mg morphine Frequency of use: Daily Substance route: Oral Date of Last Use: 04/22/19 Nicotine Substance amount: 1/2 pack Frequency of use: Daily Substance route: Smoking Date of Last Use: 04/22/19 - Last Treatment Date of last treatment: 2018 Treatment type: Substance Use Disorder ([place]ICOLE) Where was last treatment: Detox (was in detox last year here in [facility]) Physical/Psych/Mental Status - Behavior General Behavior: Increased activity (restlessness, agitation) Eye Contact: Normal - Cooperativeness Cooperativeness: Cooperative - Thinking Thought Processes: Tight, Logical, Goal Directed Thought content: Future oriented - Physical Health Problems Is patient presently having any pain?: No Does patient presently have any injuries (include location): No Does patient currently have a fever: No Is patient : No CIWA Nausea/Vomitin Muscle Tremors: 3 Anxiety: 3 Agitation: 4-Moderately Restless Paroxysmal Sweats: 2 Orientation: 0-Oriented Tacttile Disturbances: 0-None Auditory Disturbances: 0-None Visual Disturbances: 1-Very Mild Sensitivity Headache: 0-None Present (still intoxicated not in withdrawals yet.) CIWA-Ar Total Score: 16
--- NOTE | 2019-04-22 15:19 | HP ---
CIWA Score Nausea/Vomitin Muscle Tremors: 3 Anxiety: 3 Agitation: 4-Moderately Restless Paroxysmal Sweats: 2 Orientation: 0-Oriented Tacttile Disturbances: 0-None Auditory Disturbances: 0-None Visual Disturbances: 1-Very Mild Sensitivity Headache: 0-None Present (still intoxicated not in withdrawals yet.) CIWA-Ar Total Score: 16 - Admission Criteria OASAS Guidelines: Admission for Medically Managed Detox: Requires at least one of the followin. CIWA greater than 12 2. Seizures within the past 24 hours 3. Delirium tremens within the past 24 hours 4. Hallucinations within the past 24 hours 5. Acute intervention needed for co occurring medical disorder 6. Acute intervention needed for co occurring psychiatric disorder 7. Severe withdrawal that cannot be handled at a lower level of care (continued vomiting, continued diarrhea, abnormal vital signs) requiring intravenous medication and/or fluids 8. Admitting History and Physical - Admission Chief Complaint: Mr. Metcalf is a 58 yo gentleman who presents to [facility] because "I over did my drinking". History of Present Illness: Mr. Metcalf is a 58 yo gentleman who presents to [facility] because "I over did my drinking". He as last here in May of 2017, stayed 2 days in detox. At that time he left AMA. PMH: throat cancer May 2018 s/p surgery, HTN on no meds, HLD on no meds PSH; throat Psych: none Substance use history Alcohol: 7x40 ounce beers daily, first drink at the age of 17y, last drink today. Blackout 2 days ago. Seizure one year ago. Morphine; 30 mg daily began after throat surgery, last dose today Nicotine: 1/2 ppd Denies: benzo use SOC: domiciled in the [place] History Source: Patient Limitations to Obtaining History: No Limitations - Smoking History Smoking history: Current every day smoker Have you smoked in the past 12 months: Yes Aproximately how many cigarettes per day: 10 - Alcohol/Substance Use Hx Alcohol Use: Yes Admission [facility] Allergies/Adverse Reactions: Allergies Allergy/AdvReac Type Severity Reaction Status Date / Time No Known Allergies Allergy Verified 04/20/19 23:14 Exam Limitations: No Limitations - Ebola screening Have you traveled outside of the country in the last 21 days: No Have you had contact with anyone from an Ebola affected area: No Have you been sick,other than usual withdrawal symptoms: No Do you have a fever: No - Review of Systems Constitutional: No Symptoms Reported, Loss of Appetite, Unintentional Wgt. Loss (10 lb weight loss in the past 2 weeks) EENT: reports: No Symptoms Reported Respiratory: reports: No Symptoms reported Cardiac: reports: No Symptoms Reported GI: reports: Nausea, Poor Appetite : reports: No Symptoms Reported Musculoskeletal: reports: No Symptoms Reported Integumentary: reports: No Symptoms Reported Neuro: reports: No Symptoms reported Endocrine: reports: No Symptoms Reported Hematology: reports: No Symptoms Reported Psychiatric: reports: Anxious, Depressed Patient History - Patient Medical History Hx Anemia: No Hx Asthma: No Hx Chronic Obstructive Pulmonary Disease (COPD): Yes (Not on medication) Hx Cancer: No Hx Cardiac Disorders: No Hx Congestive Heart Failure: No Hx Hypertension: Yes (Not on medication) Hx Hypercholesterolemia: Yes (Not on medication) Hx Pacemaker: No HX Cerebrovascular Accident: No Hx Seizures: No Hx Dementia: No Hx Diabetes: No Hx Gastrointestinal Disorders: No Hx Liver Disease: No Hx Genitourinary Disorders: No Hx Sexually Transmitted Disorders: No Hx Renal Disease (ESRD): No Hx Thyroid Disease: No Hx Human Immunodeficiency Virus (HIV): No (Negative 2018) Hx Hepatitis C: No Hx Depression: Yes (Not taking medication) Hx Suicide Attempt: No (Denies suicidal ideation at this timco) Hx Bipolar Disorder: No Hx Schizophrenia: No - Patient Surgical History Past Surgical History: Yes Hx Neurologic Surgery: No Hx Cataract Extraction: No Hx Cardiac Surgery: No Hx Lung Surgery: No Hx Breast Surgery: No Hx Breast Biopsy: No Hx Abdominal Surgery: No Hx Appendectomy: No Hx Cholecystectomy: No Hx Genitourinary Surgery: No Hx Section: No Hx Orthopedic Surgery: Yes (1989: LEFT KNEE RECONSTRUCTIVE SURGERY.) Other Surgical History: Throat cancer May 2018 Anesthesia Reaction: No - PPD History Date: 06/22/17 Results: 0 mm PPD to be Administered?: Yes - Smoking Cessation Smoking history: Current every day smoker Have you smoked in the past 12 months: Yes Aproximately how many cigarettes per day: 10 Cigars Per Day: 0 Hx Chewing Tobacco Use: No Initiated information on smoking cessation: Yes 'Breaking Loose' booklet given: 04/22/19 Admission Physical Exam BHS - Physical General Appearance: Yes: Disheveled, Mild Distress HEENTM: Yes: Hearing grossly Normal, Normal Voice Respiratory: Yes: Lungs Clear, Normal Breath Sounds Neck: Yes: Other (left sided surgical scar, old/well healed) Breast: Yes: Breast Exam Deferred Cardiology: Yes: S1, S2, Other (BP initially 72/43 left arm, 81/64 right. repeat 105/70 at 2:30 pm) Abdominal: Yes: Non Tender, Flat, Soft, Increased Bowel Sounds Back: Yes: Normal Inspection Musculoskeletal: Yes: Within Normal Limits Extremities: Yes: Other (left leg varicosiites) Neurological: Yes: Within Normal Limits Integumentary: Yes: Within Normal Limits Cleared for Admission S - Detox or Rehab [facility] Level of Care: Medically Managed Detox Regimen/Protocol: Librium Breathalyzer - Breathalyzer Breathalyzer: 0.174 Urine Drug Screen - Test Device Lot number: [id number] Expiration date: 01/24/21 - Control Is test valid?: Yes - Results Drug screen NEGATIVE: No Urine drug screen results: BZO-Benzodiazepines Inpatient Rehab Admission - Rehab Decision to Admit Inpatient rehab admission?: No
[2019-04-22] MEDS ORDERED: MAG HYDROX/AL HYDROX/SIMETH 30 ML UNIT-DOSE CUP PO PRN (15:29)
[2019-04-22] MEDS ORDERED: chlordiazePOXIDE HCL 25 MG CAPSULE PO PRN (15:29)
[2019-04-22] MEDS ORDERED: IBUPROFEN 400 MG TABLET (FP) PO PRN (15:29)
[2019-04-22] MEDS ORDERED: MAGNESIUM CITRATE 300 ML BOTTLE PO PRN (15:29)
[2019-04-22] MEDS ORDERED: BISMUTH SUBSALICYLATE 524 MG/30 ML UD PO PRN (15:29)
[2019-04-22] MEDS ORDERED: ACETAMINOPHEN 325 MG TABLET (FP) PO PRN ×2 (15:29)
[2019-04-22] MEDS ORDERED: MENTHOL/PHENOL 1 EACH UD MM PRN (15:29)
[2019-04-22] MEDS ORDERED: MAGNESIUM HYDROX 2400MG/30ML ORAL SUSPENSION 30 ML CUP PO PRN (15:29)
[2019-04-22] MEDS ORDERED: METHOCARBAMOL 500 MG TABLET PO PRN (15:29)
[2019-04-22] MEDS ORDERED: ALBUTEROL SO4 HFA INHALER IH PRN (15:31)
--- NOTE | 2019-04-22 15:35 | PN ---
[facility] Progress Note Note: [facility] TECTONOPHYSICIST Patient Name: Ricky Metcalf Date: 1960 Address: [address] [place] [address] Sex: Male Rx Written Rx Dispensed Drug Quantity Days Supply Prescriber Name Payment Method Dispenser 03/06/2019 03/06/2019 morphine sulf er 30 mg tablet 60 30 Candice, Maryanne CLARKE Medicaid [facility] [id number] 02/13/2019 02/13/2019 morphine sulf er 15 mg tablet 60 30 CandiceMaryanne MD Medicaid [facility] [id number] 11/11/2018 11/19/2018 morphine sulf er 30 mg tablet 18 9 PangPorfirio talamantes Medicaid [facility] [id number] 10/29/2018 11/04/2018 morphine sulfate ir 15 mg tab 30 30 Cary Bruner MD Medicaid [facility] [id number] 10/13/2018 10/14/2018 morphine sulf er 15 mg tablet 20 10 Corey Corado Medicaid [facility] [id number] 05/17/2018 05/17/2018 oxycodone-acetaminophen 5-325 mg tablet 2 1 Douglas Kay) Medicaid [facility] [id number] Top of Form 1 Bottom of Form 1 .
[2019-04-22 16:16] VITALS: BMI 26.6
[2019-04-22] MEDS: NICOTINE 14 MG/24 HOURS TOPICAL PATCH TD SCH (17:04)
[2019-04-22] MEDS: chlordiazePOXIDE HCL 25 MG CAPSULE PO SCH ×2 (17:06→22:13)
[2019-04-22] MEDS: THIAMINE HCL 100 MG TABLET (FP) PO SCH (22:13)
[2019-04-22] MEDS: MELATONIN 5 MG TABLETS PO PRN (22:13)
[2019-04-23] MEDS: hydrOXYzine PAMOATE 25 MG CAPSULE (FP) PO PRN ×3 (00:39→22:25)
[2019-04-23] MEDS: chlordiazePOXIDE HCL 25 MG CAPSULE PO SCH ×4 (05:11→22:26)
[2019-04-23 10:06] LABS: HEMATOCRIT 41.8 % (35.4-49); HEMOGLOBIN 14.1 GM/dL (11.7-16.9); MCH 31.4 pg (25.7-33.7); MCHC 33.6 g/dl (32.0-35.9); MEAN CELL VOLUME 93.5 fl (80-96); MEAN PLT VOLUME 8.3 fl (7.5-11.1); PLATELET COUNT 206 K/MM3 (134-434); RBC 4.47 M/mm3 (4.00-5.60); RDW 15.7 % (11.9-15.9); WHITE BLOOD COUNT 8.5 K/mm3 (4.0-10.0)
[2019-04-23] MEDS: NICOTINE 14 MG/24 HOURS TOPICAL PATCH TD SCH (10:21)
[2019-04-23] MEDS: PRENATAL VITAMINS W/ FOLIC ACID TABLET (FP) PO SCH (10:23)
[2019-04-23 10:37] LABS: ALBUMIN 3.1 g/dl (3.4-5.0); BILIRUBIN,TOTAL 0.8 mg/dL (0.2-1); BLOOD UREA NITROGEN 9.8 mg/dL (7-18); CREATININE 0.9 mg/dL (0.55-1.3); POTASSIUM 4.3 mmol/L (3.5-5.1)
--- NOTE | 2019-04-23 11:48 | PN ---
S CIWA - CIWA Score Nausea/Vomitin-No Nausea/No Vomiting Muscle Tremors: 4-Moderate,w/Arms Extend Anxiety: 4-Mod. Anxious/Guarded Agitation: 0-Normal Activity Paroxysmal Sweats: 2 Orientation: 0-Oriented Tacttile Disturbances: 0-None Auditory Disturbances: 0-None Visual Disturbances: 1-Very Mild Sensitivity Headache: 2-Mild CIWA-Ar Total Score: 13 BHS Progress Note (SOAP) Subjective: 58 years old male admitted on 04/22/19 for alcohol withdrawal sx management treating with librum detox regiment doing well with librium regiment at this time less tremor and anxiety requests ensure for supplement nutrition Objective: 04/23/19 11:48 Vital Signs Temperature 97.1 F L 04/23/19 08:41 Pulse Rate 68 04/23/19 08:41 Respiratory Rate 18 04/23/19 08:41 Blood Pressure 102/69 04/23/19 08:41 O2 Sat by Pulse Oximetry (%) Laboratory Last Values WBC 8.5 K/mm3 (4.0-10.0) 04/23/19 07:40 RBC 4.47 M/mm3 (4.00-5.60) 04/23/19 07:40 Hgb 14.1 GM/dL (11.7-16.9) 04/23/19 07:40 Hct 41.8 % (35.4-49) 04/23/19 07:40 MCV 93.5 fl (80-96) 04/23/19 07:40 MCH 31.4 pg (25.7-33.7) 04/23/19 07:40 MCHC 33.6 g/dl (32.0-35.9) 04/23/19 07:40 RDW 15.7 % (11.9-15.9) 04/23/19 07:40 Plt Count 206 K/MM3 (134-434) D 04/23/19 07:40 MPV 8.3 fl (7.5-11.1) 04/23/19 07:40 Sodium 136 mmol/L (136-145) 04/23/19 07:40 Potassium 4.3 mmol/L (3.5-5.1) 04/23/19 07:40 Chloride 102 mmol/L (98-107) 04/23/19 07:40 Carbon Dioxide 29 mmol/L (21-32) 04/23/19 07:40 Anion Gap 5 MMOL/L (8-16) L 04/23/19 07:40 BUN 9.8 mg/dL (7-18) 04/23/19 07:40 Creatinine 0.9 mg/dL (0.55-1.3) 04/23/19 07:40 Est GFR (CKD-EPI)AfAm 108.73 04/23/19 07:40 Est GFR (CKD-EPI)NonAf 93.82 04/23/19 07:40 Random Glucose 79 mg/dL (74-106) 04/23/19 07:40 Calcium 9.0 mg/dL (8.5-10.1) 04/23/19 07:40 Total Bilirubin 0.8 mg/dL (0.2-1) 04/23/19 07:40 AST 19 U/L (15-37) 04/23/19 07:40 ALT 21 U/L (13-61) 04/23/19 07:40 Alkaline Phosphatase 114 U/L (45-117) 04/23/19 07:40 Total Protein 7.0 g/dl (6.4-8.2) 04/23/19 07:40 Albumin 3.1 g/dl (3.4-5.0) L 04/23/19 07:40 lab noted Assessment: 04/23/19 11:48 alcohol withdrawal Plan: librium regiment
--- NOTE | 2019-04-23 13:17 | CONSULT ---
[facility] Psychiatric Consult - Data Date of interview: 04/23/19 Admission source: [facility] Identifying data: Patient is a 58 year old male, , unemployed, domiciled , and is financially supported by rent money collected from his tenant. This is one of multiple admissions for patient. Patient admitted to for alcohol dependence. Substance Abuse History: Alcohol: 7x40 ounce beers daily, first drink at the age of 17y, last drink yesterday. Blackout 2 days ago. Seizure one year ago. Morphine; 30 mg daily began after throat surgery, last dose yesterday. Nicotine : 1/2 ppd Medical History: hypertension, Hypercholesterolemia Psychiatric History: Patient denies history of psychiatric hospitalizations and suicide attempt. Mr. Metcalf reports past history of outpatient psychiatric care at [facility] located in [place] in 2017. He was prescribed lexapro 20mg + Remeron 15mg HS. He reports past diagnosis of PTSD and MDD. Mr. Metcalf is currently receiving refills of remeron 30mg HS from his PCP. At present patient reports feeling sad and is experencing difficulty sleeping. 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 Mental Status Exam - Mental Status Exam Alert and Oriented to: Time, Place, Person Cognitive Function: Good Patient Appearance: Well Groomed Mood: Withdrawn Affect: Mood Congruent Patient Behavior: Cooperative Speech Pattern: Appropriate Voice Loudness: Normal Thought Process: Goal Oriented Thought Disorder: Not Present Hallucinations: Denies Suicidal Ideation: Denies Homicidal Ideation: Denies Insight/Judgement: Poor Sleep: Poorly Appetite: Fair Muscle strength/Tone: Normal Gait/Station: Normal Psychiatric Findings - Problem List ([place] 1, 2,3) (1) Alcohol dependence with uncomplicated withdrawal Current Visit: Yes Status: Acute (2) Substance-induced sleep disorder Current Visit: Yes Status: Acute (3) Depressive disorder Current Visit: Yes Status: Chronic - Initial Treatment Plan Initial Treatment Plan: Psychoeducation provided. Detoxification in progress. Will order Remeron 30mg HS. Benefits and side effects discussed. Verbal consent given.
[2019-04-23] MEDS ORDERED: MIRTAZAPINE 15 MG TABLET (FP) ONE (21:20)
[2019-04-23] MEDS ORDERED: MIRTAZAPINE 30 MG TABLET (FP) PO SCH (22:00)
[2019-04-23] MEDS: MELATONIN 5 MG TABLETS PO PRN (22:25)
[2019-04-23] MEDS: THIAMINE HCL 100 MG TABLET (FP) PO SCH (22:25)
[2019-04-24] MEDS: chlordiazePOXIDE HCL 25 MG CAPSULE PO SCH ×2 (06:08→10:19)
[2019-04-24] MEDS: PRENATAL VITAMINS W/ FOLIC ACID TABLET (FP) PO SCH (10:20)
[2019-04-24] MEDS: NICOTINE 14 MG/24 HOURS TOPICAL PATCH TD SCH (10:20)
--- NOTE | 2019-04-24 11:40 | PN ---
S CIWA - CIWA Score Nausea/Vomitin-No Nausea/No Vomiting Muscle Tremors: None Anxiety: 1-Mildly Anxious Agitation: 0-Normal Activity Paroxysmal Sweats: No Perspiration Orientation: 0-Oriented Tacttile Disturbances: 0-None Auditory Disturbances: 0-None Visual Disturbances: 0-None Headache: 2-Mild CIWA-Ar Total Score: 3 BHS Progress Note (SOAP) Subjective: Feeling well, hopeful for discharge in 2 /Saturday Objective: 04/24/19 11:39 Laboratory Tests 04/23/19 04/23/19 04/23/19 07:40 07:40 07:40 WBC 8.5 RBC 4.47 Hgb 14.1 Hct 41.8 MCV 93.5 MCH 31.4 MCHC 33.6 RDW 15.7 Plt Count 206 D MPV 8.3 Sodium 136 Potassium 4.3 Chloride 102 Carbon Dioxide 29 Anion Gap 5 L BUN 9.8 Creatinine 0.9 Est GFR (CKD-EPI)AfAm 108.73 Est GFR (CKD-EPI)NonAf 93.82 Random Glucose 79 Calcium 9.0 Total Bilirubin 0.8 AST 19 ALT 21 Alkaline Phosphatase 114 Total Protein 7.0 Albumin 3.1 L RPR Titer Nonreactive Vital Signs Temperature 97.0 F L 04/24/19 09:00 Pulse Rate 87 04/24/19 09:00 Respiratory Rate 18 04/24/19 09:00 Blood Pressure 110/77 04/24/19 09:00 O2 Sat by Pulse Oximetry (%) PE Gnl: WDWN, in no distress Mental status: awake, alert, nl language Motor: grossly nl Assessment: 04/24/19 11:40 1. Alcohol use disorder Plan: 1.continue alcohol withdrawal protocol
[2019-04-24 13:03] VITALS: BP 103/76; PULSE 85; TEMP 98.5
--- NOTE | 2019-04-24 14:59 | DS ---
[facility] Detox Discharge Summary Admission Date: 04/22/19 Discharge Date: 04/24/19 - History Present History: Alcohol Dependence - Physical Exam Results Vital Signs: Vital Signs Temperature 98.5 F 04/24/19 12:47 Pulse Rate 85 04/24/19 12:47 Respiratory Rate 18 04/24/19 12:47 Blood Pressure 103/76 04/24/19 12:47 O2 Sat by Pulse Oximetry (%) Pertinent Admission Physical Exam Findings: Mr. Metcalf insists on leaving today, staff spoke to pt and called me. He tells the staff he must leave because his house is for sale. - Medication Discharge Medications: Ambulatory Orders Albuterol Sulfate Inhaler - [Ventolin HFA Inhaler -] 2 inh IH Q4H PRN #1 inhaler 04/24/16 Mirtazapine [Remeron -] 45 mg PO HS 04/20/19 - Diagnosis (1) Alcohol dependence with uncomplicated withdrawal Current Visit: Yes Status: Acute - AMA Did Patient Leave Against Medical Advice: Yes
[2019-04-25] MEDS ORDERED: chlordiazePOXIDE HCL 10 MG CAPSULE PO PRN
[2019-04-25] MEDS ORDERED: chlordiazePOXIDE HCL 10 MG CAPSULE PO SCH (05:00)
[2019-04-26] MEDS ORDERED: chlordiazePOXIDE HCL 10 MG CAPSULE PO SCH (05:00)
[2019-04-27] MEDS ORDERED: chlordiazePOXIDE HCL 10 MG CAPSULE PO ONE (05:00)
== END 2019-04-24 02:47 | disposition left against medical advice (07) | DRG 770 ==
LOC: YASAS 13:08 → Y3N 16:10
PROVIDERS: ADMIT Allergy & Immunology; ATTEND Allergy & Immunology
PROC: HZ2ZZZZ Detoxification Services for Substance Abuse Treatment (ICD-10-PCS; principal; 2019-04-22)
DX: F10.230 Alcohol dependence with withdrawal, uncomplicated (principal); F11.23 Opioid dependence with withdrawal; F17.210 Nicotine dependence, cigarettes, uncomplicated; F19.282 Other psychoactive substance dependence with psychoactive substance-induced sleep disorder; F32.9 Major depressive disorder, single episode, unspecified; I10 Essential (primary) hypertension; E78.5 Hyperlipidemia, unspecified; Z85.818 Personal history of malignant neoplasm of other sites of lip, oral cavity, and pharynx; Z86.69 Personal history of other diseases of the nervous system and sense organs
CPT/HCPCS: 36415; 80053; 85027; 86593

== ENCOUNTER 2019-10-24 21:30 | Inpatient (IN) | payer OTHER ==
[2019-10-24 22:20] VITALS: BMI 25.1
--- NOTE | 2019-10-24 22:41 | HP ---
CIWA Score Nausea/Vomitin Muscle Tremors: 6 Anxiety: 4-Mod. Anxious/Guarded Agitation: 4-Moderately Restless Paroxysmal Sweats: 2 Orientation: 0-Oriented Tacttile Disturbances: 0-None Auditory Disturbances: 0-None Visual Disturbances: 0-None Headache: 0-None Present CIWA-Ar Total Score: 18 - Admission Criteria OASAS Guidelines: Admission for Medically Managed Detox: Requires at least one of the followin. CIWA greater than 12 2. Seizures within the past 24 hours 3. Delirium tremens within the past 24 hours 4. Hallucinations within the past 24 hours 5. Acute intervention needed for co occurring medical disorder 6. Acute intervention needed for co occurring psychiatric disorder 7. Severe withdrawal that cannot be handled at a lower level of care (continued vomiting, continued diarrhea, abnormal vital signs) requiring intravenous medication and/or fluids 8. Admitting History and Physical - Smoking History Smoking history: Current every day smoker Have you smoked in the past 12 months: Yes Aproximately how many cigarettes per day: 20 - Alcohol/Substance Use Hx Alcohol Use: Yes Admission ROS [facility] - [facility] Chief Complaint: Alcohol withdrawal symptoms Allergies/Adverse Reactions: Allergies Allergy/AdvReac Type Severity Reaction Status Date / Time No Known Allergies Allergy Verified 08/13/19 15:50 History of Present Illness: 59 years old male with a long history of alcohol dependence is seeking admission to detox. Patient has been in previous detox, last at [facility]. His last admission to [facility] was for the period 08/13/2019-08/16/2019. He drinks 6 x 40oz. Old Cambodian beer daily. He has medical history of hypertension, hyperlipidemia, COPD and psych. history of depression and insomnia. He denies suicidal ideation at this time. 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 and denies alcohol related seizures Exam Limitations: Intoxication - Ebola screening Have you traveled outside of the country in the last 21 days: No Have you had contact with anyone from an Ebola affected area: No Have you been sick,other than usual withdrawal symptoms: No Do you have a fever: No - Review of Systems Constitutional: Chills, Loss of Appetite, Malaise, Night Sweats, Changes in sleep EENT: reports: Tearing, Sinus Pressure, Other Respiratory: reports: No Symptoms reported Cardiac: reports: No Symptoms Reported GI: reports: Nausea, Poor Appetite, Poor Fluid Intake, Abdominal cramping : reports: No Symptoms Reported Musculoskeletal: reports: No Symptoms Reported Integumentary: reports: Dryness, Flushing Neuro: reports: Headache, Tremors Endocrine: reports: No Symptoms Reported Hematology: reports: No Symptoms Reported Psychiatric: reports: Orientated x3, Agitated, Anxious, Depressed Other Systems: Reviewed and Negative Patient History - Patient Medical History Hx Anemia: No Hx Asthma: No Hx Chronic Obstructive Pulmonary Disease (COPD): Yes Hx Cancer: No Hx Cardiac Disorders: No Hx Congestive Heart Failure: No Hx Hypertension: Yes (Not on medic ation) Hx Hypercholesterolemia: Yes (Not on medication) Hx Pacemaker: No HX Cerebrovascular Accident: No Hx Seizures: No Hx Dementia: No Hx Diabetes: No Hx Gastrointestinal Disorders: No Hx Liver Disease: No Hx Genitourinary Disorders: No Hx Sexually Transmitted Disorders: No Hx Renal Disease (ESRD): No Hx Thyroid Disease: No Hx Human Immunodeficiency Virus (HIV): No (Negative 2020) Hx Hepatitis C: No Hx Depression: Yes Hx Suicide Attempt: No Hx Bipolar Disorder: No Hx Schizophrenia: No - Patient Surgical History Past Surgical History: Yes Hx Neurologic Surgery: No Hx Cataract Extraction: No Hx Cardiac Surgery: No Hx Lung Surgery: No Hx Breast Surgery: No Hx Breast Biopsy: No Hx Abdominal Surgery: No Hx Appendectomy: No Hx Cholecystectomy: No Hx Genitourinary Surgery: No Hx Section: No Hx Orthopedic Surgery: Yes (1989: LEFT KNEE RECONSTRUCTIVE SURGERY.) Other Surgical History: Throat cancer May 2018 tonsilectomy due to throat Anesthesia Reaction: No - PPD History Previous Implant?: Yes Documented Results: Negative w/proof Implanted On Prior [facility] Admission?: Yes Date: 04/24/19 Results: 0 mm PPD to be Administered?: No - Reproductive History Patient is a Female of Child Bearing Age (11 -55 yrs old): No (Male) - Smoking Cessation Smoking history: Current every day smoker Have you smoked in the past 12 months: Yes Aproximately how many cigarettes per day: 5 Hx Chewing Tobacco Use: No Initiated information on smoking cessation: Yes 'Breaking Loose' booklet given: 10/24/19 - Substance & Tx. History Hx Alcohol Use: Yes Hx Substance Use: No Substance Use Type: Alcohol Hx Substance Use Treatment: Yes ([facility], [facility], [place] - Substances abused Alcohol Substance route: Oral Frequency: Daily Amount used: 6 x 40oz. Old Cambodian beer Age of first use: 15 Date of last use: 10/24/19 Admission Physical Exam [facility] - Vital Signs Vital Signs: Vital Signs - 24 hr 10/24/19 22:17 Temperature 97.6 F Pulse Rate 110 H Respiratory 18 Rate Blood Pressure 117/80 - Physical General Appearance: Yes: Intoxicated, Tremorous, Sweating, Anxious HEENTM: Yes: Within Normal Limits Respiratory: Yes: Lungs Clear, Normal Breath Sounds, No Respiratory Distress Neck: Yes: Within Normal Limits Breast: Yes: Breast Exam Deferred Cardiology: Yes: Tachycardia Abdominal: Yes: Normal Bowel Sounds, Soft Genitourinary: Yes: Within Normal Limits Back: Yes: Normal Inspection Musculoskeletal: Yes: Within Normal Limits Extremities: Yes: Tremors Neurological: Yes: Within Normal Limits, Normal Mood/Affect Integumentary: Yes: Warm Lymphatic: Yes: Within Normal Limits - Diagnostic (1) Alcohol dependence with uncomplicated withdrawal Current Visit: Yes Status: Acute Comment: w/ intoxication (2) COPD (chronic obstructive pulmonary disease) Current Visit: Yes Status: Chronic Qualifiers: COPD type: chronic bronchitis Chronic bronchitis type: unspecified Qualified Code(s): J42 - Unspecified chronic bronchitis (3) Depression Current Visit: Yes Status: Chronic Qualifiers: Depression Type: unspecified Qualified Code(s): F32.9 - Major depressive disorder, single episode, unspecified (4) Hypercholesteremia Current Visit: Yes Status: Chronic Comment: NO MEDS. (5) Hypertension Current Visit: Yes Status: Chronic Qualifiers: Hypertension type: essential hypertension Qualified Code(s): I10 - Essential (primary) hypertension (6) Insomnia Current Visit: Yes Status: Chronic Qualifiers: Insomnia type: alcohol-induced Qualified Code(s): F10.982 - Alcohol use, unspecified with alcohol-induced sleep disorder Cleared for Admission [facility] - Detox or Rehab [facility] Level of Care: Medically Managed Detox Regimen/Protocol: Librium Claeared for Rehab Admission: No Breathalyzer - Breathalyzer Breathalyzer: 0.008 Urine Drug Screen - Test Device Lot number: [id number] Expiration date: 06/02/21 - Control Is test valid?: Yes - Results Drug screen NEGATIVE: Yes Urine drug screen results: BZO-Benzodiazepines Inpatient Rehab Admission - Rehab Decision to Admit Inpatient rehab admission?: No
[2019-10-24] MEDS ORDERED: MAGNESIUM HYDROX 2400MG/30ML ORAL SUSPENSION 30 ML CUP PO PRN (22:51)
[2019-10-24] MEDS ORDERED: IBUPROFEN 400 MG TABLET (FP) PO PRN (22:51)
[2019-10-24] MEDS ORDERED: MAG HYDROX/AL HYDROX/SIMETH 30 ML UNIT-DOSE CUP PO PRN (22:51)
[2019-10-24] MEDS ORDERED: METHOCARBAMOL 500 MG TABLET PO PRN (22:51)
[2019-10-24] MEDS ORDERED: ACETAMINOPHEN 325 MG TABLET (FP) PO PRN ×2 (22:51)
[2019-10-24] MEDS ORDERED: MAGNESIUM CITRATE 300 ML BOTTLE PO PRN (22:51)
[2019-10-24] MEDS ORDERED: chlordiazePOXIDE HCL 25 MG CAPSULE PO PRN (22:51)
[2019-10-24] MEDS ORDERED: BISMUTH SUBSALICYLATE 524 MG/30 ML UD PO PRN (22:51)
[2019-10-24] MEDS: chlordiazePOXIDE HCL 25 MG CAPSULE PO SCH (23:43)
[2019-10-24] MEDS ORDERED: ONDANSETRON *ODT* 4 MG TABLET SL ONE (23:45)
[2019-10-25] MEDS: chlordiazePOXIDE HCL 25 MG CAPSULE PO SCH ×4 (05:36→22:00)
[2019-10-25 10:09] LABS: ALBUMIN 3.4 g/dl (3.4-5.0); BILIRUBIN,TOTAL 0.7 mg/dL (0.2-1); POTASSIUM 3.8 mmol/L (3.5-5.1); TOT PROT 7.4 g/dl (6.4-8.2)
[2019-10-25 10:12] LABS: HEMATOCRIT 43.9 % (35.4-49); HEMOGLOBIN 14.8 GM/dL (11.7-16.9); MCH 31.2 pg (25.7-33.7); MCHC 33.7 g/dl (32.0-35.9); MEAN CELL VOLUME 92.8 fl (80-96); MEAN PLT VOLUME 8.8 fl (7.5-11.1); PLATELET COUNT 163 K/MM3 (134-434); RBC 4.74 M/mm3 (4.00-5.60); RDW 15.4 % (11.9-15.9); WHITE BLOOD COUNT 11.6 K/mm3 (4.0-10.0)
[2019-10-25] MEDS: PRENATAL VITAMINS W/ FOLIC ACID TABLET (FP) PO SCH (10:35)
--- NOTE | 2019-10-25 11:09 | CONSULT ---
[facility] Psychiatric Consult - Data Date of interview: 10/25/19 Admission source: [facility] Identifying data: Mr Metcalf is a 58 year old male, father of a 16 year old son, unemployed, domiciled, and not currently receiving SSI. Patient admitted to detox for treatment of alcohol dependence. Substance Abuse History: Smoking Cessation. Smoking history: Current every day smoker. Have you smoked in the past 12 months: Yes. Aproximately how many cigarettes per day: 5. Hx Chewing Tobacco Use: No. Initiated information on smoking cessation: Yes. 'Breaking Loose' booklet given: 10/24/19. - Substance & Tx. History. Hx Alcohol Use: Yes. Hx Substance Use: No. Substance Use Type: Alcohol. Hx Substance Use Treatment: Yes ([facility] [place] - Substances abused. Alcohol. Substance route: Oral. Frequency: Daily. Amount used: 6 x 40oz. Old Estonian beer. Age of first use: 15. Date of last use: 10/24/19 Medical History: Significant for COPD, dyslipidemia, history of surgery for throat cancer in 2019 and reconstructive surgery right knee in 1988. Psychiatric History: Interview conduced bedside as patient reported feeling sick this morning. Patient denies history of psychiatric hospitalizations and suicide attempt. Mr. Metcalf is currently receiving outpatient psychiatric care at [facility] located in [place]. Diagnosis of PTSD + MDD. Reports taking Remeron 30mg HS. Patient with several admissions in the past and has been treated with Remeron 30mg with favorable effect. At present patient reports difficulty sleeping. 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 Mental Status Exam - Mental Status Exam Alert and Oriented to: Time, Place, Person Cognitive Function: Good Patient Appearance: Unkempt Mood: Withdrawn Affect: Mood Congruent Patient Behavior: Fatigued Speech Pattern: Delayed (Patient presents as fatigue.) Voice Loudness: Mildly Soft/Quiet Thought Process: Goal Oriented Thought Disorder: Not Present Hallucinations: Denies Suicidal Ideation: Denies Homicidal Ideation: Denies Insight/Judgement: Poor Sleep: Poorly Appetite: Fair Muscle strength/Tone: Normal Gait/Station: Other (Gait not observed.) Psychiatric Findings - Problem List ([place] 1, 2,3) (1) Alcohol-induced sleep disorder Status: Acute (2) Alcohol dependence with uncomplicated withdrawal Status: Chronic Comment: w/ intoxication (3) MDD (major depressive disorder) Status: Chronic Qualifiers: Major depression recurrence: recurrent Active/Remission status: remission status unspecified Qualified Code(s): F33.9 - Major depressive disorder, recurrent, unspecified (4) PTSD (post-traumatic stress disorder) Status: Chronic - Initial Treatment Plan Initial Treatment Plan: Psychoeducation provided. Detoxification in progress. Will order Remeron 30mg HS. Benefits and side effects discussed. Verbal consent given.
[2019-10-25] MEDS ORDERED: PNEUMOC 13-VAL CONJ-DIP CRM/PF 0.5 ML DISP.SYRIN IM ONE (12:00)
[2019-10-25] MEDS: hydrOXYzine PAMOATE 25 MG CAPSULE (FP) PO PRN ×2 (15:36→22:49)
--- NOTE | 2019-10-25 17:17 | PN ---
[facility] CIWA - CIWA Score Nausea/Vomitin-Mild Nausea/No Vomiting Muscle Tremors: 2 Anxiety: 3 Agitation: 3 Paroxysmal Sweats: 3 Orientation: 0-Oriented Tacttile Disturbances: 0-None Auditory Disturbances: 0-None Visual Disturbances: 0-None Headache: 0-None Present CIWA-Ar Total Score: 12 [facility] Progress Note (SOAP) Subjective: Chills, sweating, interrupted sleep Objective: 10/25/19 17:12 Last Vital Signs Temp Pulse Resp BP Pulse Ox 97.7 F 89 16 121/90 97 10/25/19 13:12 10/25/19 13:12 10/25/19 13:12 10/25/19 13:12 10/25/19 13:12 Elevated b/p Laboratory Tests 10/25/19 10/25/19 10/25/19 07:34 07:34 07:34 WBC 11.6 H RBC 4.74 Hgb 14.8 Hct 43.9 MCV 92.8 MCH 31.2 MCHC 33.7 RDW 15.4 Plt Count 163 D MPV 8.8 Sodium 135 L Potassium 3.8 Chloride 100 Carbon Dioxide 28 Anion Gap 7 L BUN 11.0 Creatinine 1.0 Est GFR (CKD-EPI)AfAm 95.06 Est GFR (CKD-EPI)NonAf 82.02 Random Glucose 106 Calcium 9.0 Total Bilirubin 0.7 AST 65 H ALT 52 Alkaline Phosphatase 117 Total Protein 7.4 Albumin 3.4 Syphilis Serology Non-reactive Labs reviewed: WBC 11.6 (high), AST 65 (high) Assessment: 10/25/19 17:14 Withdrawal sxs Noted with elevated diastolic b/p, leukocytosis and transaminitis Plan: Continue detox Encourage PO water intake Elevated diastolic b/p: monitor b/p Leukocytosis: asymptomatic, repeat CBC, send UA Transaminitis: most likely due to alcoholism, repeat AST
[2019-10-25] MEDS: MIRTAZAPINE 15 MG TABLET (FP) PO SCH (21:59)
[2019-10-25] MEDS: THIAMINE HCL 100 MG TABLET (FP) PO SCH (22:00)
[2019-10-25] MEDS: MELATONIN 5 MG TABLETS PO SCH (22:00)
[2019-10-26] MEDS: chlordiazePOXIDE HCL 25 MG CAPSULE PO SCH ×4 (05:20→21:59)
[2019-10-26] MEDS: PRENATAL VITAMINS W/ FOLIC ACID TABLET (FP) PO SCH (10:11)
--- NOTE | 2019-10-26 10:27 | PN ---
[facility] CIWA - CIWA Score Nausea/Vomitin-No Nausea/No Vomiting Muscle Tremors: 3 Anxiety: 3 Agitation: 3 Paroxysmal Sweats: 2 Orientation: 0-Oriented Tacttile Disturbances: 0-None Auditory Disturbances: 0-None Visual Disturbances: 0-None Headache: 0-None Present CIWA-Ar Total Score: 11 S Progress Note (SOAP) Subjective: headache sweats shakes chills body aches nausea tired Objective: 10/26/19 10:25 Vital Signs Temperature 97.8 F 10/26/19 08:49 Pulse Rate 84 10/26/19 08:49 Respiratory Rate 18 10/26/19 08:49 Blood Pressure 101/71 10/26/19 08:49 O2 Sat by Pulse Oximetry (%) 95 10/26/19 05:18 Laboratory Tests 10/24/19 10/25/19 10/25/19 22:50 07:34 07:34 WBC 11.6 H RBC 4.74 Hgb 14.8 Hct 43.9 MCV 92.8 MCH 31.2 MCHC 33.7 RDW 15.4 Plt Count 163 D MPV 8.8 Sodium Potassium Chloride Carbon Dioxide Anion Gap BUN Creatinine Est GFR (CKD-EPI)AfAm Est GFR (CKD-EPI)NonAf Random Glucose Calcium Total Bilirubin AST ALT Alkaline Phosphatase Total Protein Albumin Syphilis Serology Non-reactive COVID-19 ([facility]) Not detected 10/25/19 07:34 WBC RBC Hgb Hct MCV MCH MCHC RDW Plt Count MPV Sodium 135 L Potassium 3.8 Chloride 100 Carbon Dioxide 28 Anion Gap 7 L BUN 11.0 Creatinine 1.0 Est GFR (CKD-EPI)AfAm 95.06 Est GFR (CKD-EPI)NonAf 82.02 Random Glucose 106 Calcium 9.0 Total Bilirubin 0.7 AST 65 H ALT 52 Alkaline Phosphatase 117 Total Protein 7.4 Albumin 3.4 Syphilis Serology COVID-19 ([facility]A) repeated labs ordered by provided yesterday; however pt refused lab draw this am. will f/u aaox3 lying in bed no acute distress Assessment: 10/26/19 10:26 withdrawals Plan: continue detox increase fluids zofran prn motrin/tylenol prn
[2019-10-26] MEDS: MIRTAZAPINE 15 MG TABLET (FP) PO SCH (21:59)
[2019-10-26] MEDS: THIAMINE HCL 100 MG TABLET (FP) PO SCH (22:00)
[2019-10-26] MEDS: hydrOXYzine PAMOATE 25 MG CAPSULE (FP) PO PRN (22:00)
[2019-10-26] MEDS: MELATONIN 5 MG TABLETS PO SCH (22:01)
[2019-10-26] MEDS ORDERED: ALBUTEROL SO4 HFA INHALER IH PRN (23:31)
[2019-10-26] MEDS ORDERED: ALBUTEROL SO4 HFA INHALER IH ONE (23:34)
[2019-10-27] MEDS ORDERED: chlordiazePOXIDE HCL 10 MG CAPSULE PO PRN
[2019-10-27] MEDS: MENTHOL/PHENOL 1 EACH UD MM PRN ×2 (01:31→05:08)
[2019-10-27] MEDS ORDERED: guaiFENesin/D-METHORPHAN HB 10 ML UNIT-DOSE CUPS PO PRN (01:34)
[2019-10-27] MEDS ORDERED: P-EPHED 60MG/TRIPROLIDI 2.5MG TABLET PO PRN (01:39)
[2019-10-27] MEDS ORDERED: PSEUDOEPHEDRINE HCL 30 MG TABLET PO SCH (01:45)
[2019-10-27] MEDS ORDERED: chlordiazePOXIDE HCL 10 MG CAPSULE PO SCH (05:00)
[2019-10-27 07:07] VITALS: BP 106/80; PULSE 86; TEMP 97.3
--- NOTE | 2019-10-27 10:39 | PN ---
S CIWA - CIWA Score Nausea/Vomitin-No Nausea/No Vomiting Muscle Tremors: 1-None Visible, but [place] Anxiety: 1-Mildly Anxious Agitation: 0-Normal Activity Paroxysmal Sweats: No Perspiration Orientation: 0-Oriented Tacttile Disturbances: 0-None Auditory Disturbances: 0-None Visual Disturbances: 0-None Headache: 0-None Present CIWA-Ar Total Score: 2 [facility] Progress Note (SOAP) Subjective: I am feeling so much better Objective: 10/27/19 10:38 Vital Signs Temperature 97.3 F L 10/27/19 07:04 Pulse Rate 86 10/27/19 07:04 Respiratory Rate 18 10/27/19 07:04 Blood Pressure 106/80 10/27/19 07:04 O2 Sat by Pulse Oximetry (%) 99 10/27/19 07:04 Laboratory Tests 10/24/19 10/25/19 10/25/19 22:50 07:34 07:34 WBC 11.6 H RBC 4.74 Hgb 14.8 Hct 43.9 MCV 92.8 MCH 31.2 MCHC 33.7 RDW 15.4 Plt Count 163 D MPV 8.8 Sodium Potassium Chloride Carbon Dioxide Anion Gap BUN Creatinine Est GFR (CKD-EPI)AfAm Est GFR (CKD-EPI)NonAf Random Glucose Calcium Total Bilirubin AST ALT Alkaline Phosphatase Total Protein Albumin Syphilis Serology Non-reactive COVID-19 ([facility]) Not detected 10/25/19 07:34 WBC RBC Hgb Hct MCV MCH MCHC RDW Plt Count MPV Sodium 135 L Potassium 3.8 Chloride 100 Carbon Dioxide 28 Anion Gap 7 L BUN 11.0 Creatinine 1.0 Est GFR (CKD-EPI)AfAm 95.06 Est GFR (CKD-EPI)NonAf 82.02 Random Glucose 106 Calcium 9.0 Total Bilirubin 0.7 AST 65 H ALT 52 Alkaline Phosphatase 117 Total Protein 7.4 Albumin 3.4 Syphilis Serology COVID-19 ([facility]) aaox3 ambulating no acute distress Assessment: 10/27/19 10:38 no s/s of withdrawals noted Plan: d/c today pt states he is going to [facility]
--- NOTE | 2019-10-27 10:40 | DS ---
[facility] Detox Discharge Summary Admission Date: 10/24/19 Discharge Date: 10/27/19 - History Present History: Alcohol Dependence, Cocaine Dependence - Physical Exam Results Vital Signs: Vital Signs Temperature 97.3 F L 10/27/19 07:04 Pulse Rate 86 10/27/19 07:04 Respiratory Rate 18 10/27/19 07:04 Blood Pressure 106/80 10/27/19 07:04 O2 Sat by Pulse Oximetry (%) 99 10/27/19 07:04 Pertinent Admission Physical Exam Findings: Vital Signs Temperature 97.3 F L 10/27/19 07:04 Pulse Rate 86 10/27/19 07:04 Respiratory Rate 18 10/27/19 07:04 Blood Pressure 106/80 10/27/19 07:04 O2 Sat by Pulse Oximetry (%) 99 10/27/19 07:04 Laboratory Tests 10/24/19 10/25/19 10/25/19 22:50 07:34 07:34 WBC 11.6 H RBC 4.74 Hgb 14.8 Hct 43.9 MCV 92.8 MCH 31.2 MCHC 33.7 RDW 15.4 Plt Count 163 D MPV 8.8 Sodium Potassium Chloride Carbon Dioxide Anion Gap BUN Creatinine Est GFR (CKD-EPI)AfAm Est GFR (CKD-EPI)NonAf Random Glucose Calcium Total Bilirubin AST ALT Alkaline Phosphatase Total Protein Albumin Syphilis Serology Non-reactive COVID-19 ([facility]) Not detected 10/25/19 07:34 WBC RBC Hgb Hct MCV MCH MCHC RDW Plt Count MPV Sodium 135 L Potassium 3.8 Chloride 100 Carbon Dioxide 28 Anion Gap 7 L BUN 11.0 Creatinine 1.0 Est GFR (CKD-EPI)AfAm 95.06 Est GFR (CKD-EPI)NonAf 82.02 Random Glucose 106 Calcium 9.0 Total Bilirubin 0.7 AST 65 H ALT 52 Alkaline Phosphatase 117 Total Protein 7.4 Albumin 3.4 Syphilis Serology COVID-19 ([facility]) labs noted aaox3 ambulating no acute distress - Treatment Hospital Course: Detox Protocol Followed, Detoxed Safely, Responded well, Discharged Condition Good, Rehab Referral Accepted - Medication Discharge Medications: Ambulatory Orders Albuterol Sulfate Inhaler - [Ventolin HFA Inhaler -] 2 inh IH Q4H PRN #1 inhaler 04/24/16 Mirtazapine [Remeron -] 45 mg PO HS 04/20/19 - Diagnosis (1) Alcohol dependence with uncomplicated withdrawal Status: Chronic (2) Alcohol-induced sleep disorder Status: Acute (3) Cocaine abuse Status: Chronic (4) Drug-induced mood disorder Status: Acute (5) Injury of left hand Status: Acute (6) Substance induced mood disorder Status: Acute (7) Substance-induced sleep disorder Status: Acute (8) Anxiety disorder Status: Chronic Qualifiers: Anxiety disorder type: unspecified anxiety disorder Qualified Code(s): F41.9 - Anxiety disorder, unspecified (9) COPD (chronic obstructive pulmonary disease) Status: Chronic Qualifiers: COPD type: chronic bronchitis Chronic bronchitis type: unspecified Qualified Code(s): J42 - Unspecified chronic bronchitis (10) Chronic obstructive bronchitis Status: Chronic (11) Depression Status: Chronic Qualifiers: Depression Type: unspecified Qualified Code(s): F32.9 - Major depressive disorder, single episode, unspecified (12) Depressive disorder Status: Chronic (13) Hypercholesteremia Status: Chronic (14) Hypertension Status: Chronic Qualifiers: Hypertension type: essential hypertension Qualified Code(s): I10 - Essential (primary) hypertension (15) Insomnia Status: Chronic Qualifiers: Insomnia type: alcohol-induced Qualified Code(s): F10.982 - Alcohol use, unspecified with alcohol-induced sleep disorder (16) MDD (major depressive disorder) Status: Chronic Qualifiers: Major depression recurrence: recurrent Active/Remission status: remission status unspecified Qualified Code(s): F33.9 - Major depressive disorder, recurrent, unspecified (17) MDD (major depressive disorder) Status: Chronic (18) Nicotine dependence Status: Chronic Qualifiers: Nicotine product type: cigarettes Substance use status: uncomplicated Qualified Code(s): F17.210 - Nicotine dependence, cigarettes, uncomplicated (19) PTSD (post-traumatic stress disorder) Status: Chronic (20) History of throat cancer Status: Resolved (21) Hx of left knee surgery Status: Resolved
[2019-10-28] MEDS ORDERED: chlordiazePOXIDE HCL 10 MG CAPSULE PO SCH (05:00)
[2019-10-29] MEDS ORDERED: chlordiazePOXIDE HCL 10 MG CAPSULE PO ONE (05:00)
== END 2019-10-27 09:18 | disposition home or self-care (01) | DRG 774 ==
LOC: YASAS 21:30 → Y6N 23:26
PROVIDERS: ADMIT Allergy & Immunology; ATTEND Allergy & Immunology
PROC: HZ2ZZZZ Detoxification Services for Substance Abuse Treatment (ICD-10-PCS; principal; 2019-10-24)
DX: F10.230 Alcohol dependence with withdrawal, uncomplicated (principal); F14.20 Cocaine dependence, uncomplicated; F17.210 Nicotine dependence, cigarettes, uncomplicated; F19.24 Other psychoactive substance dependence with psychoactive substance-induced mood disorder; F10.282 Alcohol dependence with alcohol-induced sleep disorder; F33.9 Major depressive disorder, recurrent, unspecified; F43.10 Post-traumatic stress disorder, unspecified; F41.9 Anxiety disorder, unspecified; D72.829 Elevated white blood cell count, unspecified; E78.00 Pure hypercholesterolemia, unspecified; J42 Unspecified chronic bronchitis; R03.0 Elevated blood-pressure reading, without diagnosis of hypertension; R74.0 Nonspecific elevation of levels of transaminase and lactic acid dehydrogenase [LDH]; Z85.819 Personal history of malignant neoplasm of unspecified site of lip, oral cavity, and pharynx; Z98.890 Other specified postprocedural states; Z96.652 Presence of left artificial knee joint
CPT/HCPCS: 36415; 80053; 85027; 86780; U0003